=== PATIENT | female | born 1965 | race African-American/Black ===

== ENCOUNTER 2020-10-25 06:10 | Inpatient (IN) | payer OTHER ==
[2020-10-24 17:46] VITALS: BMI 35.6
[2020-10-25] MEDS ORDERED: MIDAZOLAM HCL 2 MG/2 ML SINGLE DOSE VIAL ONE ×3 (08:39→10:48)
[2020-10-25] MEDS ORDERED: DEXAMETHASONE SOD PHOSPHATE/PF 10 MG/ML SDV ONE (08:46)
[2020-10-25] MEDS ORDERED: HYDROmorphone HCl 2 MG/ML VIAL ONE (10:48)
[2020-10-25] MEDS ORDERED: ROCURONIUM BROMIDE 50 MG/5 ML SYRINGE ONE ×2 (10:48→13:39)
[2020-10-25] MEDS ORDERED: PROPOFOL 20 ML ONE (10:48)
[2020-10-25] MEDS ORDERED: ceFAZolin SODIUM 1 GM VIAL ONE ×2 (10:50→21:35)
[2020-10-25] MEDS ORDERED: KETOROLAC TROMETHAMINE 30 MG/1 ML VIAL ONE (10:50)
[2020-10-25] MEDS ORDERED: LIDOCAINE HCL/PF 2% SDV 5ML VIAL ONE (10:50)
[2020-10-25] MEDS ORDERED: DEXAMETHASONE SOD PHOSPHATE 4 MG/1 ML VIAL ONE (10:50)
[2020-10-25] MEDS ORDERED: CEFAZOLIN 2 GM in DEXTROSE 5%-WATER - 100 ML IVPB ONE (11:00)
[2020-10-25] MEDS ORDERED: ceFAZolin SODIUM 1 GM VIAL IVPB ONE (12:08)
[2020-10-25] MEDS ORDERED: NEOSTIGMINE METHYLSULFATE 0.5 MG/ML - 10 ML MDV ONE (13:49)
[2020-10-25] MEDS ORDERED: LACTATED RINGERS SOLUTION 1,000 ML IV SCH (14:00)
[2020-10-25] MEDS ORDERED: ONDANSETRON 4 MG/2 ML VIAL IVPUSH PRN ×4 (14:00→16:16)
[2020-10-25] MEDS ORDERED: oxyCODONE HCL 5 MG TABLET PO PRN ×3 (14:02→15:07)
[2020-10-25] MEDS ORDERED: ACETAMINOPHEN 1000 MG/100 ML VIAL (NON FORMULARY) IVPB ONE (14:02)
[2020-10-25] MEDS ORDERED: BENZOIN/ALOE VERA/STORAX/TOLU 58 ML BOTTLE ONE (14:29)
[2020-10-25] MEDS ORDERED: ACETAMINOPHEN INJECTION 100 ML IVPB ONE (14:50)
[2020-10-25] MEDS ORDERED: BISACODYL 5 MG TABLET.DR (FP) PO PRN (15:07)
[2020-10-25] MEDS ORDERED: INSULIN SLIDING SCALE (NOVOLOG) 1 VIAL SQ ONE (17:30)
[2020-10-25] MEDS ORDERED: ACETAMINOPHEN 325 MG TABLET (FP) PO SCH (18:00)
[2020-10-25] MEDS: SODIUM CHLORIDE 1,000 ML IV SCH (18:12)
[2020-10-25] MEDS ORDERED: amLODIPine BESYLATE 10 MG TABLET (FP) PO ONE (18:13)
[2020-10-25] MEDS: INSULIN SLIDING SCALE (NOVOLOG) 1 VIAL SQ SCH ×2 (18:14→21:21)
[2020-10-25] MEDS ORDERED: MORPHINE SULFATE 2 MG/ML VIAL SQ PRN (18:38)
[2020-10-25] MEDS ORDERED: CEFAZOLIN 1 GM in DEXTROSE 5%-WATER - 50 ML IVPB SCH ×2 (20:00→21:18)
[2020-10-25] MEDS ORDERED: IBUPROFEN 800 MG/8 ML IJ IVPB SCH (20:00)
[2020-10-25] MEDS ORDERED: KETOROLAC TROMETHAMINE 30 MG/1 ML VIAL IVPUSH PRN (20:00)
[2020-10-25] MEDS: ACETAMINOPHEN 1000 MG/100 ML VIAL (NON FORMULARY) IVPB SCH (21:21)
[2020-10-25] MEDS ORDERED: DEXTROSE 5%-WATER - 50 ML IVPB ONE (21:35)
[2020-10-25] MEDS: CEFAZOLIN 1 GM in DEXTROSE 5%-WATER - 50 ML IVPB SCH (21:37)
[2020-10-25] MEDS ORDERED: oxyCODONE HCL 10 MG SUSTAINED ACTING TABLET PO SCH (22:00)
[2020-10-26] MEDS: oxyCODONE HCL 5 MG TABLET PO PRN ×3 (01:25→21:13)
[2020-10-26] MEDS: ACETAMINOPHEN 1000 MG/100 ML VIAL (NON FORMULARY) IVPB SCH ×2 (03:05→10:53)
[2020-10-26] MEDS ORDERED: DEXTROSE 5%-WATER - 50 ML IVPB ONE ×2 (04:10→12:39)
[2020-10-26] MEDS ORDERED: ceFAZolin SODIUM 1 GM VIAL ONE ×2 (04:10→12:39)
[2020-10-26] MEDS: CEFAZOLIN 1 GM in DEXTROSE 5%-WATER - 50 ML IVPB SCH ×2 (04:11→12:40)
[2020-10-26 04:26] LABS: BASO % 0.1 % (0-2.0); HEMATOCRIT 30.5 % (32.4-45.2); HEMOGLOBIN 9.8 GM/dL (10.7-15.3); MCH 26.5 pg (25.7-33.7); MCHC 32.2 g/dl (32.0-36.0); MEAN CELL VOLUME 82.3 fl (80-96); MEAN PLT VOLUME 10.2 fl (7.5-11.1); NEUT % 86.9 % (42.8-82.8); PLATELET COUNT 173 K/MM3 (134-434); RBC 3.71 M/mm3 (3.60-5.2); RDW 16.5 % (11.6-15.6); WHITE BLOOD COUNT 13.4 K/mm3 (4.0-10.0)
[2020-10-26 04:40] LABS: POTASSIUM 3.9 mmol/L (3.5-5.1)
[2020-10-26 04:43] LABS: ALBUMIN 2.3 g/dl (3.4-5.0); BLOOD UREA NITROGEN 28.8 mg/dL (7-18); CALCIUM 7.8 mg/dL (8.5-10.1); MAGNESIUM 1.5 mg/dL (1.8-2.4)
[2020-10-26 04:46] LABS: CHOLESTEROL 147 mg/dL (50-200); CREATININE 1.9 mg/dL (0.55-1.3)
[2020-10-26 04:47] LABS: LDL CHOLESTEROL (ONLY SJRH) 54 mg/dL (5-100); PHOSPHOROUS 3.8 mg/dL (2.5-4.9)
[2020-10-26 04:48] LABS: HDL CHOLESTEROL 86 mg/dL (40-60); TRIGLYCERIDES 51 mg/dL (0-150)
[2020-10-26 04:50] LABS: BILIRUBIN,TOTAL 0.5 mg/dL (0.2-1); TOT PROT 5.8 g/dl (6.4-8.2)
[2020-10-26] MEDS: INSULIN SLIDING SCALE (NOVOLOG) 1 VIAL SQ SCH ×4 (06:17→22:09)
[2020-10-26] MEDS ORDERED: MAGNESIUM SULF 50% (8.12 MEQ/2 ML-1 GM VIAL) IVPB ONE (07:15)
[2020-10-26] MEDS ORDERED: INSULIN (LEVEMIR) 100 UNITS/ML UNITS SQ SCH ×2 (07:15→22:00)
[2020-10-26] MEDS ORDERED: HYDROCHLOROTHIAZIDE 25 MG TABLET (FP) PO SCH (10:00)
[2020-10-26] MEDS ORDERED: PATIENT'S OWN MEDICATION (NON-FORMULARY) (Losartan/Hydrochlorothiazide [Losartan-Hctz 100- PO SCH (10:00)
[2020-10-26] MEDS ORDERED: LOSARTAN POTASSIUM 50 MG TABLET PO SCH (10:00)
[2020-10-26] MEDS ORDERED: PATIENT'S OWN MEDICATION (NON-FORMULARY) (Metoprolol Tartrate [Lopressor] 100 MG Tablet) PO SCH (10:00)
[2020-10-26] MEDS ORDERED: PT OWN MED DRAWER 7, Y5N ONE (10:48)
[2020-10-26] MEDS: SODIUM CHLORIDE 1,000 ML IV SCH ×2 (10:50→13:36)
[2020-10-26] MEDS: ENOXAPARIN NA (PORCINE) 40 MG/0.4 ML DISP.SYRIN SQ SCH (10:52)
[2020-10-26] MEDS: DOCUSATE SODIUM 100 MG CAPSULE (FP) PO PRN ×2 (10:52→21:16)
[2020-10-26] MEDS: SIMETHICONE 80 MG TAB.CHEW (FP) PO PRN ×2 (10:52→21:16)
[2020-10-26 11:10] LABS: BASO % 0.2 % (0-2.0); HEMATOCRIT 29.8 % (32.4-45.2); HEMOGLOBIN 9.4 GM/dL (10.7-15.3); LYMPH % 8.7 % (8-40); MCH 26.3 pg (25.7-33.7); MCHC 31.5 g/dl (32.0-36.0); MEAN CELL VOLUME 83.5 fl (80-96); MEAN PLT VOLUME 11.3 fl (7.5-11.1); MONO % 6.5 % (3.8-10.2); NEUT % 84.6 % (42.8-82.8); PLATELET COUNT 170 K/MM3 (134-434); RBC 3.56 M/mm3 (3.60-5.2); RDW 16.5 % (11.6-15.6); WHITE BLOOD COUNT 12.7 K/mm3 (4.0-10.0)
[2020-10-26 11:26] LABS: POTASSIUM 3.9 mmol/L (3.5-5.1)
[2020-10-26 11:28] LABS: BLOOD UREA NITROGEN 27.5 mg/dL (7-18)
[2020-10-26 11:31] LABS: CREATININE 1.9 mg/dL (0.55-1.3)
[2020-10-26] MEDS ORDERED: ACETAMINOPHEN 325 MG TABLET (FP) PO PRN (15:00)
[2020-10-26] MEDS ORDERED: FERRIC CARBOXYMALTOSE 750 MG in SODIUM CHLORIDE 250 ML IVPB ONE (17:00)
[2020-10-26] MEDS ORDERED: ATORVASTATIN CA 80 MG TABLET (FP) PO SCH (22:00)
[2020-10-26] MEDS: INSULIN (LEVEMIR) 100 UNITS/ML UNITS SQ SCH (22:09)
[2020-10-26] MEDS ORDERED: IBUPROFEN 600 MG TABLET (FP) PO PRN (23:59)
[2020-10-27] MEDS: INSULIN SLIDING SCALE (NOVOLOG) 1 VIAL SQ SCH ×3 (06:34→17:26)
[2020-10-27] MEDS: INSULIN (LEVEMIR) 100 UNITS/ML UNITS SQ SCH (06:35)
[2020-10-27 06:50] LABS: BASO % 0.3 % (0-2.0); EOS % 0.6 % (0-4.5); HEMATOCRIT 29.8 % (32.4-45.2); HEMOGLOBIN 9.3 GM/dL (10.7-15.3); LYMPH % 12.1 % (8-40); MCH 25.6 pg (25.7-33.7); MCHC 31.1 g/dl (32.0-36.0); MEAN CELL VOLUME 82.5 fl (80-96); MEAN PLT VOLUME 11.1 fl (7.5-11.1); MONO % 6.6 % (3.8-10.2); NEUT % 80.4 % (42.8-82.8); PLATELET COUNT 154 K/MM3 (134-434); RBC 3.62 M/mm3 (3.60-5.2); RDW 16.9 % (11.6-15.6)
[2020-10-27 07:09] LABS: POTASSIUM 3.7 mmol/L (3.5-5.1)
[2020-10-27 07:16] LABS: CALCIUM 8.3 mg/dL (8.5-10.1)
[2020-10-27 07:17] LABS: BLOOD UREA NITROGEN 22.8 mg/dL (7-18)
[2020-10-27 07:20] LABS: CREATININE 1.6 mg/dL (0.55-1.3)
[2020-10-27] MEDS ORDERED: POLYETHYLENE GLYCOL 3350 119 GM BTL PO PRN (09:13)
[2020-10-27] MEDS: DOCUSATE SODIUM 100 MG CAPSULE (FP) PO PRN (09:20)
[2020-10-27] MEDS: SIMETHICONE 80 MG TAB.CHEW (FP) PO PRN (09:20)
[2020-10-27] MEDS: ENOXAPARIN NA (PORCINE) 40 MG/0.4 ML DISP.SYRIN SQ SCH (09:20)
[2020-10-27] MEDS ORDERED: PT OWN MED DRAWER 7, Y5N ONE ×2 (09:23→16:33)
[2020-10-27] MEDS: SODIUM CHLORIDE 1,000 ML IV SCH (09:30)
[2020-10-27] MEDS ORDERED: IRON POLYSACCHARIDES 150 MG CAPSULE PO SCH (10:00)
[2020-10-27] MEDS ORDERED: BISACODYL 10 MG SUPP.RECT PR ONE (11:45)
[2020-10-27] MEDS ORDERED: INSULIN (NOVOLOG) ASPART 100 UNITS/ML 10ML VIAL ONE (12:22)
[2020-10-27] MEDS ORDERED: ACETAMINOPHEN 1000 MG/100 ML VIAL (NON FORMULARY) IVPB ONE (12:42)
[2020-10-27] MEDS ORDERED: LOSARTAN 50MG/HCTZ 12.5MG 1 TAB PO ONE (16:00)
[2020-10-27 16:45] VITALS: BP 159/81; PULSE 78; TEMP 97.7
== END 2020-10-27 18:25 | disposition home or self-care (01) | DRG 742 ==
LOC: J2C 06:10 → J8W 17:52
PROVIDERS: ADMIT Specialist; ATTEND Specialist
PROC: 0UT90ZZ Resection of Uterus, Open Approach (ICD-10-PCS; principal; 2020-10-26)
PROC: 0UT70ZZ Resection of Bilateral Fallopian Tubes, Open Approach (ICD-10-PCS; 2020-10-26)
PROC: 0UT20ZZ Resection of Bilateral Ovaries, Open Approach (ICD-10-PCS; 2020-10-26)
PROC: 0DNW0ZZ Release Peritoneum, Open Approach (ICD-10-PCS; 2020-10-26)
DX: D25.9 Leiomyoma of uterus, unspecified (principal); N17.9 Acute kidney failure, unspecified; N92.0 Excessive and frequent menstruation with regular cycle; N73.6 Female pelvic peritoneal adhesions (postinfective); N72 Inflammatory disease of cervix uteri; N83.11 Corpus luteum cyst of right ovary; E78.5 Hyperlipidemia, unspecified; I12.9 Hypertensive chronic kidney disease with stage 1 through stage 4 chronic kidney disease, or unspecified chronic kidney disease; N18.30 Chronic kidney disease, stage 3 unspecified; E11.9 Type 2 diabetes mellitus without complications; E66.9 Obesity, unspecified; Z68.35 Body mass index [BMI] 35.0-35.9, adult; D64.9 Anemia, unspecified
CPT/HCPCS: 36415; 71045-TC-FY; 80048; 80053; 80061; 82550; 82553; 82728; 82947; 82962; 83036; 83540; 83550; 83721; 83735; 84100; 84443; 84484; 84703; 85025; 86850; 86900; 86901; 88305-TC; 88307-TC; 93005; 93010; 94010; 94760; 97116-GP; 97161-GP; J0131; J1439

== ENCOUNTER 2020-11-06 12:42 | Inpatient (IN) | payer OTHER ==
[2020-11-06] MEDS ORDERED: ONDANSETRON 4 MG/2 ML VIAL IVPUSH ONE (14:05)
[2020-11-06] MEDS ORDERED: SODIUM CHLORIDE 1,000 ML IV SCH ×3 (14:15→19:30)
[2020-11-06] MEDS ORDERED: ONDANSETRON 4 MG/2 ML VIAL ONE (14:16)
[2020-11-06 14:36] LABS: BASO % 0.7 % (0-2.0); EOS % 0.9 % (0-4.5); HEMATOCRIT 32.1 % (32.4-45.2); HEMOGLOBIN 10.4 GM/dL (10.7-15.3); LYMPH % 10.8 % (8-40); MCH 27.2 pg (25.7-33.7); MCHC 32.6 g/dl (32.0-36.0); MEAN CELL VOLUME 83.4 fl (80-96); MEAN PLT VOLUME 9.5 fl (7.5-11.1); MONO % 5.6 % (3.8-10.2); PLATELET COUNT 462 K/MM3 (134-434); RBC 3.85 M/mm3 (3.60-5.2); RDW 17.4 % (11.6-15.6)
[2020-11-06 15:12] LABS: INR 1.04 (0.83-1.09); PROTHROMBIN TIME (PATIENT) 12.6 SEC (9.7-13.0)
[2020-11-06 15:15] LABS: ACTIVATED PTT 33.8 SECONDS (25.2-36.5); POTASSIUM 3.3 mmol/L (3.5-5.1)
[2020-11-06 15:18] LABS: ALBUMIN 2.1 g/dl (3.4-5.0)
[2020-11-06 15:22] LABS: TOT PROT 7.5 g/dl (6.4-8.2)
[2020-11-06] MEDS ORDERED: morphine CARPU-JECT 4 MG/1 ML DISP.SYRIN IVPUSH ONE (15:24)
[2020-11-06] MEDS ORDERED: morphine SULFATE 4 MG/ML VIAL ONE (15:48)
[2020-11-06] MEDS ORDERED: PIPERACILLIN/TAZOB 4.5 GM 4.5 GM in DEXTROSE 5%-WATER 100 ML IVPB ONE (18:44)
[2020-11-06] MEDS ORDERED: PIPERACILLIN/TAZOB 4.5 GM 4.5 GM/100 ML BAG IVPB ONE (19:12)
[2020-11-06] MEDS ORDERED: ACETAMINOPHEN 1000 MG/100 ML VIAL (NON FORMULARY) IVPB STA (19:44)
[2020-11-06] MEDS ORDERED: MORPHINE SULFATE 2 MG/ML VIAL IVPUSH PRN (19:44)
[2020-11-06] MEDS ORDERED: ACETAMINOPHEN INJECTION 100 ML IVPB ONE (19:55)
[2020-11-06] MEDS ORDERED: ONDANSETRON 4 MG/2 ML VIAL IVPUSH PRN (21:49)
[2020-11-06] MEDS ORDERED: POTASSIUM CHLORIDE ORAL LIQUID 20 MEQ/15 ML PO ONE (21:52)
[2020-11-06] MEDS ORDERED: ATORVASTATIN CA 80 MG TABLET (FP) ONE (22:11)
[2020-11-06] MEDS ORDERED: POTASSIUM CHLORIDE ORAL LIQUID 20 MEQ/15 ML ONE (22:11)
[2020-11-06] MEDS: ATORVASTATIN CA 80 MG TABLET (FP) PO SCH (22:16)
[2020-11-07] MEDS ORDERED: PIPERACILLIN/TAZOB 3.375 GM 3.375 GM/50 ML BAG IVPB ONE (02:24)
[2020-11-07] MEDS: PIPERACILLIN/TAZOB 3.375 GM 3.375 GM in DEXTROSE 5%-WATER - 50 ML IVPB SCH ×4 (02:30→17:09)
[2020-11-07 05:55] LABS: HEMATOCRIT 27.4 % (32.4-45.2); HEMOGLOBIN 8.9 GM/dL (10.7-15.3); MCH 27.1 pg (25.7-33.7); MCHC 32.5 g/dl (32.0-36.0); MEAN CELL VOLUME 83.3 fl (80-96); MEAN PLT VOLUME 9.1 fl (7.5-11.1); PLATELET COUNT 398 K/MM3 (134-434); RBC 3.29 M/mm3 (3.60-5.2); RDW 17.5 % (11.6-15.6); WHITE BLOOD COUNT 8.7 K/mm3 (4.0-10.0)
[2020-11-07 06:12] LABS: POTASSIUM 3.4 mmol/L (3.5-5.1)
[2020-11-07 06:13] LABS: INR 1.14 (0.83-1.09); PROTHROMBIN TIME (PATIENT) 13.7 SEC (9.7-13.0)
[2020-11-07 06:18] LABS: BLOOD UREA NITROGEN 19.1 mg/dL (7-18); MAGNESIUM 1.6 mg/dL (1.8-2.4)
[2020-11-07 06:20] LABS: CALCIUM 8.4 mg/dL (8.5-10.1); CREATININE 1.9 mg/dL (0.55-1.3)
[2020-11-07 06:22] LABS: PHOSPHOROUS 3.5 mg/dL (2.5-4.9)
[2020-11-07 06:44] VITALS: BMI 33.7
[2020-11-07] MEDS ORDERED: DEXTROSE 5%-WATER - 50 ML IVPB ONE ×2 (09:10→16:55)
[2020-11-07] MEDS ORDERED: PIPERACILLIN/TAZOBACTAM 3.375 GM VIAL IVPB ONE ×2 (09:10→16:54)
[2020-11-07] MEDS: IRON POLYSACCHARIDES 150 MG CAPSULE PO SCH (09:22)
[2020-11-07] MEDS: INSULIN SLIDING SCALE (NOVOLOG) 1 VIAL SQ SCH ×4 (09:22→21:17)
[2020-11-07] MEDS ORDERED: MAGNESIUM 2GM/50ML STERILE WATER IVPB IVPB ONE (13:30)
[2020-11-07] MEDS ORDERED: POTASSIUM CHLORIDE TABS 20 MEQ TABLET.ER (FP) PO ONE (13:30)
[2020-11-07] MEDS: LACTATED RINGERS SOLUTION 1,000 ML/1,000 ML INFUS.BAG IV SCH (13:42)
[2020-11-07 14:54] LABS: EPI CELLS 16 /uL (0-25.1); HYALINE CASTS 7 /uL (0-3.1); PH,URINE 6.5 (5.0-8.0); URINE APPEARANCE TURBID; URINE BACTERIA 92 /uL (0-1359); URINE BILIRUBIN NEGATIVE (NEGATIVE); URINE COLOR ORANGE; URINE GLUCOSE (UA) 1+ (NEGATIVE); URINE KETONE NEGATIVE (NEGATIVE); URINE LEUK ESTERASE 1+ (NEGATIVE); URINE NITRITE NEGATIVE (NEGATIVE); URINE PROTEIN 3+ (NEGATIVE); URINE RBC 292 /uL (0-23.9); URINE UROBILINOGEN 0.2 mg/dL (0.2-1.0); URINE WBC 2639 /uL (0-25.8)
[2020-11-07] MEDS: ATORVASTATIN CA 80 MG TABLET (FP) PO SCH (21:17)
[2020-11-08] MEDS ORDERED: PIPERACILLIN/TAZOBACTAM 3.375 GM VIAL IVPB ONE ×2 (01:26→08:56)
[2020-11-08] MEDS ORDERED: DEXTROSE 5%-WATER - 50 ML IVPB ONE ×2 (01:26→08:57)
[2020-11-08] MEDS: LACTATED RINGERS SOLUTION 1,000 ML/1,000 ML INFUS.BAG IV SCH (01:34)
[2020-11-08] MEDS: PIPERACILLIN/TAZOB 3.375 GM 3.375 GM in DEXTROSE 5%-WATER - 50 ML IVPB SCH ×2 (01:35→09:15)
[2020-11-08] MEDS: INSULIN SLIDING SCALE (NOVOLOG) 1 VIAL SQ SCH ×2 (06:16→11:35)
[2020-11-08 08:32] LABS: BASO % 0.6 % (0-2.0); EOS % 3.3 % (0-4.5); HEMATOCRIT 29.5 % (32.4-45.2); HEMOGLOBIN 9.3 GM/dL (10.7-15.3); LYMPH % 18.8 % (8-40); MCH 26.5 pg (25.7-33.7); MCHC 31.4 g/dl (32.0-36.0); MEAN CELL VOLUME 84.4 fl (80-96); MEAN PLT VOLUME 9.4 fl (7.5-11.1); MONO % 9.4 % (3.8-10.2); NEUT % 67.9 % (42.8-82.8); PLATELET COUNT 427 K/MM3 (134-434); RDW 17.3 % (11.6-15.6); WHITE BLOOD COUNT 6.9 K/mm3 (4.0-10.0)
[2020-11-08 08:47] LABS: POTASSIUM 3.6 mmol/L (3.5-5.1)
[2020-11-08 08:50] LABS: BLOOD UREA NITROGEN 15.7 mg/dL (7-18); CALCIUM 8.6 mg/dL (8.5-10.1)
[2020-11-08 08:53] LABS: CREATININE 1.8 mg/dL (0.55-1.3)
[2020-11-08 08:55] LABS: BILIRUBIN,TOTAL 0.9 mg/dL (0.2-1)
[2020-11-08 08:59] LABS: TOT PROT 6.3 g/dl (6.4-8.2)
[2020-11-08] MEDS ORDERED: amLODIPine BESYLATE 5 MG TABLET (FP) PO SCH (10:00)
[2020-11-08] MEDS: IRON POLYSACCHARIDES 150 MG CAPSULE PO SCH (11:29)
[2020-11-08] MEDS ORDERED: LACTATED RINGERS SOLUTION 1,000 ML/1,000 ML INFUS.BAG IV SCH (13:21)
[2020-11-08 13:37] VITALS: BP 154/74; PULSE 78; TEMP 98.8
[2020-11-08] MEDS ORDERED: amLODIPine BESYLATE 5 MG TABLET (FP) PO ONE (14:45)
== END 2020-11-08 15:35 | disposition home or self-care (01) | DRG 863 ==
LOC: JER 12:42 → JERBED 19:29 → J7W 11-07 06:03
PROVIDERS: ADMIT Hospitalist; ATTEND Family Medicine
DX: K68.11 Postprocedural retroperitoneal abscess (principal); N39.0 Urinary tract infection, site not specified; N17.9 Acute kidney failure, unspecified; N73.8 Other specified female pelvic inflammatory diseases; E87.6 Hypokalemia; I12.9 Hypertensive chronic kidney disease with stage 1 through stage 4 chronic kidney disease, or unspecified chronic kidney disease; N18.9 Chronic kidney disease, unspecified; D72.829 Elevated white blood cell count, unspecified; E66.9 Obesity, unspecified; Z68.33 Body mass index [BMI] 33.0-33.9, adult; E11.65 Type 2 diabetes mellitus with hyperglycemia; E78.5 Hyperlipidemia, unspecified
CPT/HCPCS: 36415; 71045-TC-FY; 74019-TC-FY; 74176-TC; 80048; 80053; 81003; 82436; 82565; 82962; 83036; 83605; 83690; 83735; 84100; 84133; 84300; 85025; 85027; 85610; 85730; 86140; 86850; 86900; 86901; 87040; 87086; 93005; 93010; 99285-25; C9803; J0131; U0003

== ENCOUNTER 2021-03-05 13:43 | Emergency (ER) | payer OTHER ==
[2021-03-05 13:49] VITALS: BP 162/88; PULSE 71; TEMP 97.8; BMI 35.4
[2021-03-05] MEDS ORDERED: ACETAMINOPHEN 500 MG TABLET (FP) PO ONE (15:56)
== END 2021-03-05 17:26 | disposition home or self-care (01) ==
LOC: JERFT 13:43
DX: M71.21 Synovial cyst of popliteal space [Baker], right knee (principal)
CPT/HCPCS: 73562-TC-RT-FY; 93971-TC; 99284-25

== ENCOUNTER 2021-08-11 06:13 | Inpatient (IN) | payer SELFPAY ==
[2021-08-11] MEDS ORDERED: METOCLOPRAMIDE HCL INJECTION 10 MG/2 ML VIAL IVPUSH ONE (08:45)
[2021-08-11] MEDS ORDERED: SODIUM CHLORIDE 0.9% 500 ML INFUS.BAG IV ONE (08:46)
[2021-08-11] MEDS ORDERED: METOCLOPRAMIDE HCL INJECTION 10 MG/2 ML VIAL ONE (09:15)
[2021-08-11] MEDS ORDERED: LABETALOL HCL 5 MG/1 ML (100MG/20 ML VIAL) IVPUSH ONE (11:32)
[2021-08-11] MEDS ORDERED: LABETALOL HCL 5 MG/1 ML (100MG/20 ML VIAL) ONE (11:37)
[2021-08-11 12:14] LABS: BASO % 0.5 % (0-2.0); EOS % 0.1 % (0-4.5); HEMATOCRIT 35.8 % (32.4-45.2); HEMOGLOBIN 12.1 GM/dL (10.7-15.3); LYMPH % 9.4 % (8-40); MCH 28.7 pg (25.7-33.7); MCHC 33.7 g/dl (32.0-36.0); MEAN CELL VOLUME 85.2 fl (80-96); MONO % 1.9 % (3.8-10.2); NEUT % 88.1 % (42.8-82.8); PLATELET COUNT 250 10^3/uL (134-434); RBC 4.21 M/mm3 (3.60-5.2); RDW 14.9 % (11.6-15.6); WHITE BLOOD COUNT 8.1 K/mm3 (4.0-10.0)
[2021-08-11 12:37] LABS: ALBUMIN 1.8 g/dl (3.4-5.0)
[2021-08-11 12:40] LABS: CREATININE 2.8 mg/dL (0.55-1.3)
[2021-08-11 12:42] LABS: BILIRUBIN,TOTAL 0.8 mg/dL (0.2-1); BLOOD UREA NITROGEN 24.2 mg/dL (7-18); TOT PROT 6.2 g/dl (6.4-8.2)
[2021-08-11] MEDS ORDERED: amLODIPine BESYLATE 5 MG TABLET (FP) PO ONE ×2 (12:56→21:27)
[2021-08-11] MEDS ORDERED: amLODIPine BESYLATE 5 MG TABLET (FP) ONE ×2 (13:09→22:20)
[2021-08-11] MEDS ORDERED: ACETAMINOPHEN 1000 MG/100 ML VIAL (NON FORMULARY) IVPB PRN (17:37)
[2021-08-11] MEDS ORDERED: LACTATED RINGERS SOLUTION 1000 ML INFUS.BAG IV ONE (17:38)
[2021-08-11] MEDS ORDERED: PANTOPRAZOLE SODIUM 40 MG/100 ML BAG IVPB ONE (22:20)
[2021-08-11] MEDS: INSULIN SLIDING SCALE (NOVOLOG) 1 VIAL SQ SCH (22:34)
[2021-08-11] MEDS: PANTOPRAZOLE SODIUM 40 MG VIAL IVPUSH SCH (22:34)
[2021-08-12] MEDS ORDERED: hydrALAZINE HCL 50 MG TABLET (FP) PO ONE ×3 (00:18→08:40)
[2021-08-12 01:34] LABS: BASO % 0.9 % (0-2.0); HEMATOCRIT 32.1 % (32.4-45.2); HEMOGLOBIN 10.9 GM/dL (10.7-15.3); LYMPH % 25.1 % (8-40); MEAN CELL VOLUME 85.3 fl (80-96); MEAN PLT VOLUME 9.2 fl (7.5-11.1); MONO % 9.3 % (3.8-10.2); NEUT % 63.7 % (42.8-82.8); PLATELET COUNT 228 10^3/uL (134-434); RBC 3.77 M/mm3 (3.60-5.2); WHITE BLOOD COUNT 8.1 K/mm3 (4.0-10.0)
[2021-08-12] MEDS ORDERED: ACETAMINOPHEN 325 MG TABLET (FP) PO PRN (01:47)
[2021-08-12 04:26] VITALS: BMI 32.1
[2021-08-12] MEDS: INSULIN SLIDING SCALE (NOVOLOG) 1 VIAL SQ SCH ×4 (06:35→22:01)
[2021-08-12 07:47] LABS: BASO % 0.9 % (0-2.0); EOS % 1.4 % (0-4.5); HEMATOCRIT 29.7 % (32.4-45.2); HEMOGLOBIN 10.3 GM/dL (10.7-15.3); MCH 29.2 pg (25.7-33.7); MCHC 34.6 g/dl (32.0-36.0); MEAN CELL VOLUME 84.3 fl (80-96); MONO % 7.3 % (3.8-10.2); NEUT % 56.4 % (42.8-82.8); PLATELET COUNT 207 10^3/uL (134-434); RBC 3.52 M/mm3 (3.60-5.2); RDW 15.1 % (11.6-15.6); WHITE BLOOD COUNT 7.6 K/mm3 (4.0-10.0)
[2021-08-12 07:53] LABS: CALCIUM 7.2 mg/dL (8.5-10.1)
[2021-08-12 07:54] LABS: BLOOD UREA NITROGEN 36.9 mg/dL (7-18)
[2021-08-12 07:57] LABS: CREATININE 3.3 mg/dL (0.55-1.3)
[2021-08-12 07:59] LABS: BILIRUBIN,TOTAL 0.2 mg/dL (0.2-1); TOT PROT 4.7 g/dl (6.4-8.2)
[2021-08-12 08:30] LABS: ALBUMIN 1.4 g/dl (3.4-5.0)
[2021-08-12] MEDS: PANTOPRAZOLE SODIUM 40 MG VIAL IVPUSH SCH ×2 (09:17→22:01)
[2021-08-12] MEDS: amLODIPine BESYLATE 10 MG TABLET (FP) PO SCH (09:17)
[2021-08-12] MEDS ORDERED: SODIUM CHLORIDE 0.45% 1,000 ML IV SCH (14:00)
[2021-08-12 17:01] LABS: EPI CELLS 20 /uL (0-25.1); HYALINE CASTS 2 /uL (0-3.1); URINE APPEARANCE CLEAR; URINE BACTERIA 141 /uL (0-1359); URINE BILIRUBIN NEGATIVE (NEGATIVE); URINE COLOR YELLOW; URINE GLUCOSE (UA) 1+ (NEGATIVE); URINE KETONE NEGATIVE (NEGATIVE); URINE LEUK ESTERASE NEGATIVE (NEGATIVE); URINE NITRITE NEGATIVE (NEGATIVE); URINE PROTEIN 4+ (NEGATIVE); URINE RBC 27 /uL (0-23.9); URINE UROBILINOGEN 0.2 mg/dL (0.2-1.0); URINE WBC 15 /uL (0-25.8)
[2021-08-13] MEDS: INSULIN SLIDING SCALE (NOVOLOG) 1 VIAL SQ SCH ×4 (06:48→22:06)
[2021-08-13 07:47] LABS: CALCIUM 7.9 mg/dL (8.5-10.1)
[2021-08-13 07:48] LABS: ALBUMIN 1.6 g/dl (3.4-5.0); BLOOD UREA NITROGEN 38.3 mg/dL (7-18)
[2021-08-13 07:51] LABS: CREATININE 3.4 mg/dL (0.55-1.3)
[2021-08-13 07:53] LABS: BILIRUBIN,TOTAL 0.4 mg/dL (0.2-1); TOT PROT 5.4 g/dl (6.4-8.2)
[2021-08-13] MEDS: amLODIPine BESYLATE 10 MG TABLET (FP) PO SCH (10:27)
[2021-08-13] MEDS: PANTOPRAZOLE SODIUM 40 MG VIAL IVPUSH SCH ×2 (10:27→22:03)
[2021-08-13] MEDS ORDERED: INSULIN (NOVOLOG) ASPART 100 UNITS/ML 10ML VIAL ONE (12:19)
[2021-08-14] MEDS: INSULIN SLIDING SCALE (NOVOLOG) 1 VIAL SQ SCH ×4 (06:45→21:16)
[2021-08-14] MEDS: INSULIN (LEVEMIR) 100 UNITS/ML UNITS SQ SCH (06:45)
[2021-08-14 07:46] LABS: BASO % 0.8 % (0-2.0); EOS % 3.2 % (0-4.5); HEMATOCRIT 29.9 % (32.4-45.2); HEMOGLOBIN 10.1 GM/dL (10.7-15.3); LYMPH % 36.1 % (8-40); MCH 28.6 pg (25.7-33.7); MCHC 33.9 g/dl (32.0-36.0); MEAN CELL VOLUME 84.4 fl (80-96); MEAN PLT VOLUME 10.2 fl (7.5-11.1); MONO % 5.6 % (3.8-10.2); NEUT % 54.3 % (42.8-82.8); PLATELET COUNT 204 10^3/uL (134-434); RBC 3.54 M/mm3 (3.60-5.2); RDW 14.8 % (11.6-15.6); WHITE BLOOD COUNT 6.5 K/mm3 (4.0-10.0)
[2021-08-14 08:09] LABS: CALCIUM 7.8 mg/dL (8.5-10.1)
[2021-08-14 08:10] LABS: BLOOD UREA NITROGEN 41.5 mg/dL (7-18)
[2021-08-14] MEDS ORDERED: POTASSIUM CHLORIDE TABS 20 MEQ TABLET.ER (FP) PO ONE (09:00)
[2021-08-14] MEDS: PANTOPRAZOLE SODIUM 40 MG VIAL IVPUSH SCH ×2 (09:53→21:16)
[2021-08-14] MEDS: amLODIPine BESYLATE 10 MG TABLET (FP) PO SCH (09:53)
[2021-08-14] MEDS: hydrALAZINE HCL 25 MG TABLET (FP) PO SCH ×2 (13:58→21:16)
[2021-08-14] MEDS ORDERED: INSULIN (NOVOLOG) ASPART 100 UNITS/ML 10ML VIAL ONE (21:02)
[2021-08-15] MEDS: INSULIN (LEVEMIR) 100 UNITS/ML UNITS SQ SCH (06:08)
[2021-08-15] MEDS: hydrALAZINE HCL 25 MG TABLET (FP) PO SCH (06:09)
[2021-08-15] MEDS: INSULIN SLIDING SCALE (NOVOLOG) 1 VIAL SQ SCH ×3 (06:09→17:33)
[2021-08-15] MEDS ORDERED: PANTOPRAZOLE 40 MG TABLET PO SCH (10:00)
[2021-08-15] MEDS: amLODIPine BESYLATE 10 MG TABLET (FP) PO SCH (10:15)
[2021-08-15 11:58] LABS: EOS % 2.9 % (0-4.5); HEMATOCRIT 31.4 % (32.4-45.2); HEMOGLOBIN 10.9 GM/dL (10.7-15.3); LYMPH % 28.3 % (8-40); MCHC 34.6 g/dl (32.0-36.0); MEAN CELL VOLUME 83.8 fl (80-96); MEAN PLT VOLUME 9.1 fl (7.5-11.1); MONO % 5.3 % (3.8-10.2); NEUT % 62.5 % (42.8-82.8); PLATELET COUNT 225 10^3/uL (134-434); RBC 3.75 M/mm3 (3.60-5.2); RDW 14.6 % (11.6-15.6)
[2021-08-15 12:36] LABS: BLOOD UREA NITROGEN 38.6 mg/dL (7-18); CALCIUM 7.7 mg/dL (8.5-10.1)
[2021-08-15 12:39] LABS: CREATININE 2.7 mg/dL (0.55-1.3)
[2021-08-15] MEDS ORDERED: hydrALAZINE HCL 50 MG TABLET (FP) PO SCH (14:00)
[2021-08-15] MEDS ORDERED: POTASSIUM CHLORIDE TABS 20 MEQ TABLET.ER (FP) PO ONE (14:30)
[2021-08-15 15:48] VITALS: BP 184/86; PULSE 70; TEMP 97.8
[2021-08-16 12:08] LABS: ANTIGLOMERULAR BASEMENT MEN.AB 2 units (0-20)
[2021-08-17 18:11] LABS: ATYPICAL pANCA <1:20 titer (Neg:<1:20); C-ANCA <1:20 titer (Neg:<1:20)
== END 2021-08-15 18:33 | disposition home or self-care (01) | DRG 199 ==
LOC: JER 06:13 → JERBED 13:00 → J4W 23:21
PROVIDERS: ATTEND Family Medicine
DX: I16.1 Hypertensive emergency (principal); I12.9 Hypertensive chronic kidney disease with stage 1 through stage 4 chronic kidney disease, or unspecified chronic kidney disease; E11.22 Type 2 diabetes mellitus with diabetic chronic kidney disease; N18.9 Chronic kidney disease, unspecified; E78.5 Hyperlipidemia, unspecified; K92.0 Hematemesis; N17.9 Acute kidney failure, unspecified; I24.8 Other forms of acute ischemic heart disease; D64.9 Anemia, unspecified; M17.0 Bilateral primary osteoarthritis of knee
CPT/HCPCS: 36415; 70450-TC; 71045-TC-FY; 73562-TC-LT-FY; 73562-TC-RT-FY; 76775-TC; 80048; 80053; 81003; 82272; 82436; 82550; 82553; 82570; 82962; 83036; 83516; 83520; 84133; 84155; 84156; 84165; 84300; 84484; 84585; 85025; 86038; 86225; 86256; 86706; 86850; 86900; 86901; 87340; 87517; 87522; 93005; 93010; 93306-TC; 99285-25; C9803; J0131; U0003; U0005

== ENCOUNTER 2021-08-28 06:58 | Emergency (ER) | payer SELFPAY ==
[2021-08-28 07:04] VITALS: BP 167/82; PULSE 72; TEMP 98.1; BMI 35.4
[2021-08-28] MEDS ORDERED: KETOROLAC TROMETHAMINE 60 MG/2 ML VIAL IM ONE (08:16)
[2021-08-28] MEDS ORDERED: KETOROLAC TROMETHAMINE 60 MG/2 ML VIAL ONE (08:20)
== END 2021-08-28 09:45 | disposition home or self-care (01) ==
LOC: JER 06:58
PROC: 3E0233Z Introduction of Anti-inflammatory into Muscle, Percutaneous Approach (ICD-10-PCS; principal; 2021-08-28)
DX: M25.562 Pain in left knee (principal); G89.29 Other chronic pain
CPT/HCPCS: 73560-TC-LT-FY; 99284-25

== ENCOUNTER 2022-07-14 23:50 | Inpatient (IN) | payer OTHER ==
[2022-07-15 03:58] LABS: BASO % 0.5 % (0-2.0); EOS % 2.8 % (0-4.5); HEMATOCRIT 23.5 % (32.4-45.2); HEMOGLOBIN 8.1 GM/dL (10.7-15.3); LYMPH % 33.3 % (8-40); MCH 29.9 pg (25.7-33.7); MCHC 34.3 g/dl (32.0-36.0); MEAN CELL VOLUME 87.2 fl (80-96); MEAN PLT VOLUME 8.2 fl (7.5-11.1); NEUT % 53.4 % (42.8-82.8); PLATELET COUNT 224 10^3/uL (134-434); RDW 14.7 % (11.6-15.6); WHITE BLOOD COUNT 5.4 K/mm3 (4.0-10.0)
[2022-07-15 04:32] LABS: CALCIUM 8.4 mg/dL (8.5-10.1)
[2022-07-15 04:33] LABS: ALBUMIN 2.6 g/dl (3.4-5.0); BLOOD UREA NITROGEN 56.6 mg/dL (7-18)
[2022-07-15 04:36] LABS: CREATININE 5.7 mg/dL (0.55-1.3)
[2022-07-15 04:37] LABS: BILIRUBIN,TOTAL 0.3 mg/dL (0.2-1)
[2022-07-15 04:38] LABS: TOT PROT 6.2 g/dl (6.4-8.2)
[2022-07-15] MEDS ORDERED: LABETALOL HCL 5 MG/1 ML (100MG/20 ML VIAL) IVPUSH ONE ×4 (04:59→17:20)
[2022-07-15] MEDS ORDERED: amLODIPine BESYLATE 10 MG TABLET (FP) PO ONE (05:16)
[2022-07-15] MEDS ORDERED: SODIUM CHLORIDE 500 ML IV STA (05:48)
[2022-07-15] MEDS ORDERED: amLODIPine BESYLATE 10 MG TABLET (FP) ONE ×2 (05:53→09:03)
[2022-07-15] MEDS ORDERED: SODIUM CHLORIDE 1,000 ML IV SCH (07:30)
[2022-07-15] MEDS ORDERED: PANTOPRAZOLE 40 MG TABLET PO ONE (09:03)
[2022-07-15] MEDS: PANTOPRAZOLE 40 MG TABLET PO SCH ×2 (09:45→22:10)
[2022-07-15] MEDS ORDERED: hydrALAZINE HCL 20 MG/ML VIAL IVPUSH PRN (09:55)
[2022-07-15] MEDS ORDERED: amLODIPine BESYLATE 10 MG TABLET (FP) PO SCH (10:00)
[2022-07-15] MEDS ORDERED: METOPROLOL TARTRATE 5 MG/5 ML VIAL ONE ×3 (10:42→15:48)
[2022-07-15] MEDS: METOPROLOL TARTRATE 5 MG/5 ML VIAL IVPUSH SCH ×2 (10:47→13:33)
[2022-07-15] MEDS: ATORVASTATIN CA 80 MG TABLET (FP) PO SCH (10:54)
[2022-07-15] MEDS ORDERED: hydrALAZINE HCL 20 MG/ML VIAL ONE (11:19)
[2022-07-15] MEDS: INSULIN SLIDING SCALE (NOVOLOG) 1 VIAL SQ SCH ×3 (11:46→22:10)
[2022-07-15] MEDS ORDERED: hydrALAZINE HCL 50 MG TABLET (FP) PO SCH (14:00)
[2022-07-15] MEDS ORDERED: SODIUM CHLORIDE 0.45% 1,000 ML IV SCH (14:45)
[2022-07-15] MEDS ORDERED: METOPROLOL TARTRATE 5 MG/5 ML VIAL IVPUSH ONE (15:21)
[2022-07-15 16:41] LABS: EPI CELLS 3 /uL (0-25.1); HYALINE CASTS 1 /uL (0-3.1); PH,URINE 6.5 (5.0-8.0); URINE APPEARANCE CLOUDY; URINE BACTERIA >9,000 /uL (0-1359); URINE BILIRUBIN NEGATIVE (NEGATIVE); URINE COLOR YELLOW; URINE GLUCOSE (UA) NEGATIVE (NEGATIVE); URINE KETONE NEGATIVE (NEGATIVE); URINE LEUK ESTERASE 2+ (NEGATIVE); URINE NITRITE NEGATIVE (NEGATIVE); URINE PROTEIN 3+ (NEGATIVE); URINE RBC 12 /uL (0-23.9); URINE UROBILINOGEN 0.2 mg/dL (0.2-1.0); URINE WBC 471 /uL (0-25.8)
[2022-07-15] MEDS ORDERED: CEFTRIAXONE 1 GM in DEXTROSE 5%-WATER - 50 ML IVPB SCH (16:45)
[2022-07-15] MEDS ORDERED: CEFTRIAXONE 1 GM/50 ML BAG ONE (17:13)
[2022-07-15] MEDS ORDERED: LABETALOL HCL 5 MG/1 ML (100MG/20 ML VIAL) ONE (17:13)
[2022-07-15] MEDS: NICARDIPINE 25 MG in DEXTROSE 5%-WATER - 240 ML IVPB SCH (19:29)
[2022-07-15] MEDS ORDERED: PIPERACILLIN/TAZOB 2.25 GM 2.25 GM in DEXTROSE 5%-WATER - 50 ML IVPB SCH (19:45)
[2022-07-15] MEDS ORDERED: PIPERACILLIN/TAZOB 2.25 GM 2.25 GM/50 ML BAG IVPB ONE (20:08)
[2022-07-15] MEDS: MUPIROCIN 2% TOPICAL OINTMENT FOR DECOLONIZATION NS SCH (22:11)
[2022-07-15] MEDS: DOXYCYCLINE INJECTION 100 MG in DEXTROSE 5%-WATER 100 ML IVPB SCH (22:11)
[2022-07-15] MEDS: CHLORHEXIDINE GLUCONATE 4% CLEANSER FOR DECOLONIZATION TP SCH (22:11)
[2022-07-15] MEDS: levETIRAcetam 500 MG/5 ML INJECTION VIAL IVPB SCH (22:11)
[2022-07-16] MEDS: NICARDIPINE 25 MG in DEXTROSE 5%-WATER - 240 ML IVPB SCH ×2 (00:30→23:00)
[2022-07-16] MEDS ORDERED: PIPERACILLIN/TAZOB 2.25 GM 2.25 GM in DEXTROSE 5%-WATER - 50 ML IVPB SCH (02:00)
[2022-07-16] MEDS: INSULIN SLIDING SCALE (NOVOLOG) 1 VIAL SQ SCH ×4 (06:01→22:08)
[2022-07-16 08:08] LABS: BASO % 0.8 % (0-2.0); EOS % 3.4 % (0-4.5); HEMATOCRIT 26.3 % (32.4-45.2); HEMOGLOBIN 8.6 GM/dL (10.7-15.3); LYMPH % 23.4 % (8-40); MCH 28.8 pg (25.7-33.7); MCHC 32.9 g/dl (32.0-36.0); MEAN CELL VOLUME 87.5 fl (80-96); MEAN PLT VOLUME 8.6 fl (7.5-11.1); MONO % 6.3 % (3.8-10.2); NEUT % 66.1 % (42.8-82.8); PLATELET COUNT 275 10^3/uL (134-434); RDW 14.9 % (11.6-15.6); WHITE BLOOD COUNT 6.1 K/mm3 (4.0-10.0)
[2022-07-16 08:29] LABS: INR 0.91 (0.83-1.09); PROTHROMBIN TIME (PATIENT) 10.5 SEC (9.7-13.0)
[2022-07-16 08:32] LABS: ACTIVATED PTT 33.9 SECONDS (25.2-36.5); ALBUMIN 2.9 g/dl (3.4-5.0); BLOOD UREA NITROGEN 50.6 mg/dL (7-18); CALCIUM 8.6 mg/dL (8.5-10.1)
[2022-07-16 08:35] LABS: CREATININE 5.5 mg/dL (0.55-1.3); PHOSPHOROUS 4.7 mg/dL (2.5-4.9)
[2022-07-16 08:37] LABS: BILIRUBIN,TOTAL 0.4 mg/dL (0.2-1); TOT PROT 6.7 g/dl (6.4-8.2)
[2022-07-16] MEDS: ATORVASTATIN CA 80 MG TABLET (FP) PO SCH (09:46)
[2022-07-16] MEDS: DOXYCYCLINE INJECTION 100 MG in DEXTROSE 5%-WATER 100 ML IVPB SCH (09:46)
[2022-07-16] MEDS: PANTOPRAZOLE 40 MG TABLET PO SCH (09:46)
[2022-07-16] MEDS: levETIRAcetam 500 MG/5 ML INJECTION VIAL IVPB SCH ×2 (09:46→22:02)
[2022-07-16] MEDS: MUPIROCIN 2% TOPICAL OINTMENT FOR DECOLONIZATION NS SCH ×2 (09:46→22:09)
[2022-07-16] MEDS ORDERED: LOSARTAN POTASSIUM 50 MG TABLET PO SCH (10:15)
[2022-07-16] MEDS: CARVEDILOL 25 MG TABLET (FP) PO SCH ×2 (10:41→22:45)
[2022-07-16] MEDS: SERTRALINE HCL 25 MG TABLET (FP) PO SCH (10:41)
[2022-07-16] MEDS: ISOSORBIDE MONONITRATE 60 MG TAB.SR.24H (FP) PO SCH (11:22)
[2022-07-16] MEDS ORDERED: hydrALAZINE HCL 50 MG TABLET (FP) PO SCH ×2 (11:33→14:00)
[2022-07-16] MEDS ORDERED: hydrALAZINE HCL 10 MG TABLET PO ONE (12:04)
[2022-07-16] MEDS: METOCLOPRAMIDE HCL 10 MG TABLET (FP) PO SCH ×2 (14:26→22:45)
[2022-07-16] MEDS: CEFTRIAXONE 1 GM in DEXTROSE 5%-WATER - 50 ML IVPB SCH (15:20)
[2022-07-16] MEDS: SODIUM CHLORIDE 0.45% 1,000 ML IV SCH (17:12)
[2022-07-16] MEDS: CHLORHEXIDINE GLUCONATE 4% CLEANSER FOR DECOLONIZATION TP SCH (22:03)
[2022-07-16] MEDS: hydrALAZINE HCL 50 MG TABLET (FP) PO SCH (22:45)
[2022-07-17] MEDS ORDERED: hydrALAZINE HCL 20 MG/ML VIAL IVPUSH ONE (02:25)
[2022-07-17] MEDS: INSULIN SLIDING SCALE (NOVOLOG) 1 VIAL SQ SCH ×4 (06:44→21:28)
[2022-07-17 07:40] LABS: HEMOGLOBIN 7.8 GM/dL (10.7-15.3); MCH 28.8 pg (25.7-33.7); MCHC 32.7 g/dl (32.0-36.0); MEAN CELL VOLUME 87.9 fl (80-96); MEAN PLT VOLUME 8.2 fl (7.5-11.1); PLATELET COUNT 237 10^3/uL (134-434); RBC 2.73 M/mm3 (3.60-5.2); RDW 14.6 % (11.6-15.6); WHITE BLOOD COUNT 5.7 K/mm3 (4.0-10.0)
[2022-07-17] MEDS: hydrALAZINE HCL 50 MG TABLET (FP) PO SCH ×3 (07:51→21:28)
[2022-07-17] MEDS: METOCLOPRAMIDE HCL 10 MG TABLET (FP) PO SCH ×3 (07:51→21:28)
[2022-07-17 08:33] LABS: BLOOD UREA NITROGEN 48.8 mg/dL (7-18); CALCIUM 8.3 mg/dL (8.5-10.1); MAGNESIUM 1.9 mg/dL (1.8-2.4)
[2022-07-17 08:35] LABS: PHOSPHOROUS 4.5 mg/dL (2.5-4.9)
[2022-07-17 08:36] LABS: CREATININE 5.3 mg/dL (0.55-1.3)
[2022-07-17] MEDS: MUPIROCIN 2% TOPICAL OINTMENT FOR DECOLONIZATION NS SCH ×2 (09:52→21:28)
[2022-07-17] MEDS: CEFTRIAXONE 1 GM in DEXTROSE 5%-WATER - 50 ML IVPB SCH (09:53)
[2022-07-17] MEDS: levETIRAcetam 500 MG/5 ML INJECTION VIAL IVPB SCH ×2 (09:54→21:28)
[2022-07-17] MEDS: ISOSORBIDE MONONITRATE 60 MG TAB.SR.24H (FP) PO SCH (10:09)
[2022-07-17] MEDS: SERTRALINE HCL 25 MG TABLET (FP) PO SCH (10:10)
[2022-07-17] MEDS: CARVEDILOL 25 MG TABLET (FP) PO SCH ×2 (10:10→21:28)
[2022-07-17] MEDS: ATORVASTATIN CA 80 MG TABLET (FP) PO SCH (10:11)
[2022-07-17] MEDS: PANTOPRAZOLE 40 MG TABLET PO SCH (10:11)
[2022-07-17] MEDS: amLODIPine BESYLATE 10 MG TABLET (FP) PO SCH (10:11)
[2022-07-17 17:11] VITALS: BMI 27.6
[2022-07-17] MEDS: SODIUM CHLORIDE 0.45% 1,000 ML IV SCH (17:25)
[2022-07-17] MEDS: CHLORHEXIDINE GLUCONATE 4% CLEANSER FOR DECOLONIZATION TP SCH (21:28)
[2022-07-18] MEDS ORDERED: hydrALAZINE HCL 20 MG/ML VIAL IVPUSH ONE (02:57)
[2022-07-18] MEDS: hydrALAZINE HCL 50 MG TABLET (FP) PO SCH ×3 (06:10→21:43)
[2022-07-18] MEDS: METOCLOPRAMIDE HCL 10 MG TABLET (FP) PO SCH ×3 (06:10→21:43)
[2022-07-18] MEDS: INSULIN SLIDING SCALE (NOVOLOG) 1 VIAL SQ SCH ×4 (06:10→21:43)
[2022-07-18] MEDS: ISOSORBIDE MONONITRATE 60 MG TAB.SR.24H (FP) PO SCH (10:33)
[2022-07-18] MEDS: CARVEDILOL 25 MG TABLET (FP) PO SCH ×2 (10:33→21:43)
[2022-07-18] MEDS: MUPIROCIN 2% TOPICAL OINTMENT FOR DECOLONIZATION NS SCH ×2 (10:33→21:44)
[2022-07-18] MEDS: SERTRALINE HCL 25 MG TABLET (FP) PO SCH (10:34)
[2022-07-18] MEDS: levETIRAcetam 500 MG TABLET (FP) PO SCH ×2 (10:34→21:43)
[2022-07-18] MEDS: ATORVASTATIN CA 80 MG TABLET (FP) PO SCH (10:34)
[2022-07-18] MEDS: amLODIPine BESYLATE 10 MG TABLET (FP) PO SCH (10:34)
[2022-07-18] MEDS: PANTOPRAZOLE 40 MG TABLET PO SCH (10:34)
[2022-07-18] MEDS: CEFTRIAXONE 1 GM in DEXTROSE 5%-WATER - 50 ML IVPB SCH (10:34)
[2022-07-18] MEDS: SODIUM CHLORIDE 0.45% 1,000 ML IV SCH (17:16)
[2022-07-18 17:39] LABS: EOS % 2.5 % (0-4.5); HEMATOCRIT 24.7 % (32.4-45.2); LYMPH % 29.3 % (8-40); MCH 28.5 pg (25.7-33.7); MCHC 32.4 g/dl (32.0-36.0); MEAN CELL VOLUME 87.9 fl (80-96); MEAN PLT VOLUME 8.9 fl (7.5-11.1); MONO % 5.8 % (3.8-10.2); NEUT % 61.4 % (42.8-82.8); PLATELET COUNT 265 10^3/uL (134-434); RBC 2.81 M/mm3 (3.60-5.2); WHITE BLOOD COUNT 5.6 K/mm3 (4.0-10.0)
[2022-07-18 18:04] LABS: ALBUMIN 2.5 g/dl (3.4-5.0); CALCIUM 8.5 mg/dL (8.5-10.1)
[2022-07-18 18:06] LABS: CREATININE 5.2 mg/dL (0.55-1.3)
[2022-07-18 18:09] LABS: BILIRUBIN,TOTAL 0.6 mg/dL (0.2-1); TOT PROT 6.3 g/dl (6.4-8.2)
[2022-07-18] MEDS: CHLORHEXIDINE GLUCONATE 4% CLEANSER FOR DECOLONIZATION TP SCH (21:44)
[2022-07-19] MEDS: METOCLOPRAMIDE HCL 10 MG TABLET (FP) PO SCH ×3 (06:45→21:05)
[2022-07-19] MEDS: hydrALAZINE HCL 50 MG TABLET (FP) PO SCH ×3 (06:45→21:04)
[2022-07-19] MEDS: INSULIN SLIDING SCALE (NOVOLOG) 1 VIAL SQ SCH ×4 (06:46→21:19)
[2022-07-19 06:47] LABS: BASO % 0.5 % (0-2.0); EOS % 2.9 % (0-4.5); HEMATOCRIT 22.3 % (32.4-45.2); HEMOGLOBIN 7.3 GM/dL (10.7-15.3); LYMPH % 35.7 % (8-40); MCH 28.8 pg (25.7-33.7); MCHC 32.9 g/dl (32.0-36.0); MEAN CELL VOLUME 87.6 fl (80-96); MEAN PLT VOLUME 8.2 fl (7.5-11.1); NEUT % 52.9 % (42.8-82.8); PLATELET COUNT 236 10^3/uL (134-434); RBC 2.54 M/mm3 (3.60-5.2); RDW 14.2 % (11.6-15.6); WHITE BLOOD COUNT 5.1 K/mm3 (4.0-10.0)
[2022-07-19 07:22] LABS: ALBUMIN 2.5 g/dl (3.4-5.0); CALCIUM 8.2 mg/dL (8.5-10.1)
[2022-07-19 07:23] LABS: BLOOD UREA NITROGEN 45.6 mg/dL (7-18)
[2022-07-19 07:25] LABS: CREATININE 5.2 mg/dL (0.55-1.3)
[2022-07-19 07:27] LABS: BILIRUBIN,TOTAL 0.3 mg/dL (0.2-1); TOT PROT 5.9 g/dl (6.4-8.2)
[2022-07-19] MEDS: CARVEDILOL 25 MG TABLET (FP) PO SCH ×3 (09:24→21:04)
[2022-07-19] MEDS: PANTOPRAZOLE 40 MG TABLET PO SCH ×2 (09:24→12:26)
[2022-07-19] MEDS: ATORVASTATIN CA 80 MG TABLET (FP) PO SCH ×2 (09:24→12:26)
[2022-07-19] MEDS: amLODIPine BESYLATE 10 MG TABLET (FP) PO SCH ×2 (09:24→12:26)
[2022-07-19] MEDS: SERTRALINE HCL 25 MG TABLET (FP) PO SCH ×2 (09:24→12:26)
[2022-07-19] MEDS: CEFTRIAXONE 1 GM in DEXTROSE 5%-WATER - 50 ML IVPB SCH (09:24)
[2022-07-19] MEDS: levETIRAcetam 500 MG TABLET (FP) PO SCH ×3 (09:24→21:04)
[2022-07-19] MEDS: MUPIROCIN 2% TOPICAL OINTMENT FOR DECOLONIZATION NS SCH ×2 (09:25→21:04)
[2022-07-19] MEDS: ISOSORBIDE MONONITRATE 60 MG TAB.SR.24H (FP) PO SCH (12:26)
[2022-07-19] MEDS: METOPROLOL TARTRATE 5 MG/5 ML VIAL IVPUSH PRN ×2 (13:59→17:24)
[2022-07-19] MEDS: CHLORHEXIDINE GLUCONATE 4% CLEANSER FOR DECOLONIZATION TP SCH (21:04)
[2022-07-19] MEDS: SODIUM CHLORIDE 0.45% 1,000 ML IV SCH (21:18)
[2022-07-20] MEDS: METOPROLOL TARTRATE 5 MG/5 ML VIAL IVPUSH PRN (02:58)
[2022-07-20] MEDS: hydrALAZINE HCL 50 MG TABLET (FP) PO SCH ×3 (06:14→21:17)
[2022-07-20] MEDS: METOCLOPRAMIDE HCL 10 MG TABLET (FP) PO SCH ×3 (06:14→21:17)
[2022-07-20] MEDS: SODIUM CHLORIDE 0.45% 1,000 ML IV SCH ×2 (06:15→20:35)
[2022-07-20] MEDS: INSULIN SLIDING SCALE (NOVOLOG) 1 VIAL SQ SCH ×4 (06:16→21:27)
[2022-07-20] MEDS: CEFTRIAXONE 1 GM in DEXTROSE 5%-WATER - 50 ML IVPB SCH (10:11)
[2022-07-20] MEDS: CARVEDILOL 25 MG TABLET (FP) PO SCH ×2 (10:13→21:18)
[2022-07-20] MEDS: PANTOPRAZOLE 40 MG TABLET PO SCH (10:13)
[2022-07-20] MEDS: amLODIPine BESYLATE 10 MG TABLET (FP) PO SCH (10:13)
[2022-07-20] MEDS: SERTRALINE HCL 25 MG TABLET (FP) PO SCH (10:13)
[2022-07-20] MEDS: levETIRAcetam 500 MG TABLET (FP) PO SCH ×2 (10:13→21:17)
[2022-07-20] MEDS: ATORVASTATIN CA 80 MG TABLET (FP) PO SCH (10:13)
[2022-07-20] MEDS: ISOSORBIDE MONONITRATE 60 MG TAB.SR.24H (FP) PO SCH (12:15)
[2022-07-20] MEDS: MUPIROCIN 2% TOPICAL OINTMENT FOR DECOLONIZATION NS SCH (12:17)
[2022-07-20] MEDS: CHLORHEXIDINE GLUCONATE 4% CLEANSER FOR DECOLONIZATION TP SCH (21:18)
[2022-07-21] MEDS: METOCLOPRAMIDE HCL 10 MG TABLET (FP) PO SCH ×4 (06:08→23:53)
[2022-07-21] MEDS: hydrALAZINE HCL 50 MG TABLET (FP) PO SCH ×4 (06:08→23:53)
[2022-07-21] MEDS: INSULIN SLIDING SCALE (NOVOLOG) 1 VIAL SQ SCH ×4 (06:09→23:04)
[2022-07-21] MEDS: SODIUM CHLORIDE 0.45% 1,000 ML IV SCH ×2 (06:10→17:25)
[2022-07-21] MEDS: CEFTRIAXONE 1 GM in DEXTROSE 5%-WATER - 50 ML IVPB SCH (09:31)
[2022-07-21] MEDS: SERTRALINE HCL 25 MG TABLET (FP) PO SCH (09:31)
[2022-07-21] MEDS: ATORVASTATIN CA 80 MG TABLET (FP) PO SCH (09:32)
[2022-07-21] MEDS: amLODIPine BESYLATE 10 MG TABLET (FP) PO SCH (09:32)
[2022-07-21] MEDS: ISOSORBIDE MONONITRATE 60 MG TAB.SR.24H (FP) PO SCH (09:32)
[2022-07-21] MEDS: levETIRAcetam 500 MG TABLET (FP) PO SCH ×3 (09:32→23:53)
[2022-07-21] MEDS: CARVEDILOL 25 MG TABLET (FP) PO SCH ×3 (09:32→23:53)
[2022-07-21] MEDS: PANTOPRAZOLE 40 MG TABLET PO SCH (09:32)
[2022-07-21] MEDS: CHLORHEXIDINE GLUCONATE 4% CLEANSER FOR DECOLONIZATION TP SCH (23:04)
[2022-07-22] MEDS: METOCLOPRAMIDE HCL 10 MG TABLET (FP) PO SCH ×2 (05:36→13:56)
[2022-07-22] MEDS: hydrALAZINE HCL 50 MG TABLET (FP) PO SCH ×2 (05:36→13:56)
[2022-07-22] MEDS: SODIUM CHLORIDE 0.45% 1,000 ML IV SCH (05:37)
[2022-07-22] MEDS: INSULIN SLIDING SCALE (NOVOLOG) 1 VIAL SQ SCH ×2 (06:16→10:02)
[2022-07-22 07:56] LABS: CALCIUM 8.4 mg/dL (8.5-10.1)
[2022-07-22 07:57] LABS: BLOOD UREA NITROGEN 41.1 mg/dL (7-18)
[2022-07-22 07:59] LABS: CREATININE 5.4 mg/dL (0.55-1.3)
[2022-07-22] MEDS: ISOSORBIDE MONONITRATE 60 MG TAB.SR.24H (FP) PO SCH (09:23)
[2022-07-22] MEDS: ATORVASTATIN CA 80 MG TABLET (FP) PO SCH (09:23)
[2022-07-22] MEDS: PANTOPRAZOLE 40 MG TABLET PO SCH (09:23)
[2022-07-22] MEDS: levETIRAcetam 500 MG TABLET (FP) PO SCH (09:23)
[2022-07-22] MEDS: CEFTRIAXONE 1 GM in DEXTROSE 5%-WATER - 50 ML IVPB SCH (09:23)
[2022-07-22] MEDS: amLODIPine BESYLATE 10 MG TABLET (FP) PO SCH (09:23)
[2022-07-22] MEDS: CARVEDILOL 25 MG TABLET (FP) PO SCH (09:23)
[2022-07-22] MEDS: SERTRALINE HCL 25 MG TABLET (FP) PO SCH (09:51)
[2022-07-22 10:18] VITALS: TEMP 97.8
[2022-07-22 10:19] VITALS: RESP 20
[2022-07-22 13:57] VITALS: BP 165/75; PULSE 74
== END 2022-07-22 16:04 | DRG 199 ==
LOC: JER 23:50 → JERBED 07-15 04:44 → JICU 07-15 21:17 → J2W 07-16 21:20
PROVIDERS: ADMIT Hospitalist; ATTEND Internal Medicine
DX: I16.1 Hypertensive emergency (principal); N17.9 Acute kidney failure, unspecified; E11.22 Type 2 diabetes mellitus with diabetic chronic kidney disease; I50.30 Unspecified diastolic (congestive) heart failure; F03.90 Unspecified dementia, unspecified severity, without behavioral disturbance, psychotic disturbance, mood disturbance, and anxiety; I08.1 Rheumatic disorders of both mitral and tricuspid valves; E03.9 Hypothyroidism, unspecified; E78.5 Hyperlipidemia, unspecified; G40.909 Epilepsy, unspecified, not intractable, without status epilepticus; N39.0 Urinary tract infection, site not specified; Z68.35 Body mass index [BMI] 35.0-35.9, adult; I13.0 Hypertensive heart and chronic kidney disease with heart failure and stage 1 through stage 4 chronic kidney disease, or unspecified chronic kidney disease; Z91.14 Patient's other noncompliance with medication regimen; N18.4 Chronic kidney disease, stage 4 (severe); D63.1 Anemia in chronic kidney disease
CPT/HCPCS: 36415; 70450-TC; 71045-TC-FY; 72125-TC; 76775-TC; 80048; 80053; 80061; 80177; 81003; 82272; 82550; 82728; 82962; 83036; 83540; 83550; 83605; 83615; 83735; 84100; 84443; 84484; 85025; 85027; 85045; 85610; 85730; 87086; 87186; 93005; 93010; 93306-TC; 97116-GP; 97161-GP; 99291; C9803-CS; U0003; U0005

== ENCOUNTER 2022-08-04 17:25 | Inpatient (IN) | payer OTHER ==
[2022-08-04 19:21] LABS: VENOUS BASE EXCESS -4.1 mmol/L (-2-2); VENOUS O2 SATURATION 90.9 % (70-80); VENOUS PCO2 38.1 mmHg (38-52); VENOUS PH 7.358 (7.310-7.410)
[2022-08-04 19:23] LABS: BASO % 0.5 % (0-2.0); EOS % 1.3 % (0-4.5); HEMATOCRIT 21.7 % (32.4-45.2); HEMOGLOBIN 7.2 GM/dL (10.7-15.3); LYMPH % 22.9 % (8-40); MCH 29.6 pg (25.7-33.7); MCHC 33.4 g/dl (32.0-36.0); MEAN CELL VOLUME 88.6 fl (80-96); MEAN PLT VOLUME 7.6 fl (7.5-11.1); MONO % 8.1 % (3.8-10.2); NEUT % 67.2 % (42.8-82.8); PLATELET COUNT 240 10^3/uL (134-434); RBC 2.45 M/mm3 (3.60-5.2); WHITE BLOOD COUNT 8.1 K/mm3 (4.0-10.0)
[2022-08-04 19:31] LABS: INR 0.91 (0.83-1.09); PROTHROMBIN TIME (PATIENT) 10.5 SEC (9.7-13.0)
[2022-08-04 19:34] LABS: ACTIVATED PTT 37.9 SECONDS (25.2-36.5)
[2022-08-04 19:43] LABS: MAGNESIUM 2.3 mg/dL (1.8-2.4)
[2022-08-04 19:44] LABS: CALCIUM 8.8 mg/dL (8.5-10.1)
[2022-08-04 19:45] LABS: BLOOD UREA NITROGEN 65.6 mg/dL (7-18)
[2022-08-04 19:48] LABS: CREATININE 6.8 mg/dL (0.55-1.3)
[2022-08-04 19:49] LABS: BILIRUBIN,TOTAL 0.3 mg/dL (0.2-1); TOT PROT 6.7 g/dl (6.4-8.2)
[2022-08-04 19:51] LABS: N-TERMINAL BNP 4576.8 pg/ml (5-125)
[2022-08-04 20:10] LABS: EPI CELLS 13 /uL (0-25.1); HYALINE CASTS 1 /uL (0-3.1); URINE APPEARANCE CLEAR; URINE BACTERIA 5 /uL (0-1359); URINE BILIRUBIN NEGATIVE (NEGATIVE); URINE COLOR YELLOW; URINE GLUCOSE (UA) TRACE (NEGATIVE); URINE KETONE NEGATIVE (NEGATIVE); URINE LEUK ESTERASE NEGATIVE (NEGATIVE); URINE NITRITE NEGATIVE (NEGATIVE); URINE PROTEIN 4+ (NEGATIVE); URINE RBC 16 /uL (0-23.9); URINE UROBILINOGEN 0.2 mg/dL (0.2-1.0); URINE WBC 10 /uL (0-25.8)
[2022-08-04] MEDS ORDERED: FUROSEMIDE 40 MG/4 ML INJECTABLE VIAL IVPUSH ONE (20:19)
[2022-08-04] MEDS ORDERED: DEXTROSE 50%-WATER - 25 GM/50 ML VIAL IVPUSH ONE (20:40)
[2022-08-04] MEDS ORDERED: DEXTROSE 50%-WATER 25 GM/50 ML DISP.SYRIN ONE (20:52)
[2022-08-04] MEDS ORDERED: FUROSEMIDE 40 MG/4 ML INJECTABLE VIAL ONE (20:53)
[2022-08-05] MEDS ORDERED: ALBUTEROL SO4 0.083% IH SOL 2.5 MG/3 ML VIAL.NEB. NEB PRN (01:35)
[2022-08-05] MEDS ORDERED: hydrALAZINE HCL 20 MG/ML VIAL ONE ×2 (06:44→13:52)
[2022-08-05] MEDS: hydrALAZINE HCL 20 MG/ML VIAL IVPUSH PRN ×2 (06:48→14:03)
[2022-08-05] MEDS: hydrALAZINE HCL 50 MG TABLET (FP) PO SCH (08:39)
[2022-08-05] MEDS ORDERED: FAMOTIDINE 20 MG TABLET ONE (08:51)
[2022-08-05] MEDS ORDERED: amLODIPine BESYLATE 10 MG TABLET (FP) ONE (08:51)
[2022-08-05] MEDS ORDERED: ISOSORBIDE MONONITRATE 60 MG TAB.SR.24H (FP) PO ONE (08:51)
[2022-08-05] MEDS ORDERED: levETIRAcetam 500 MG/5 ML INJECTION VIAL IVPB ONE ×2 (08:51→22:45)
[2022-08-05] MEDS ORDERED: FAMOTIDINE 20 MG TABLET PO SCH (10:00)
[2022-08-05] MEDS ORDERED: levETIRAcetam 500 MG TABLET (FP) PO SCH (10:00)
[2022-08-05 10:07] LABS: BASO % 1.1 % (0-2.0); EOS % 2.5 % (0-4.5); HEMATOCRIT 20.9 % (32.4-45.2); HEMOGLOBIN 7.1 GM/dL (10.7-15.3); LYMPH % 23.6 % (8-40); MCH 29.9 pg (25.7-33.7); MCHC 33.8 g/dl (32.0-36.0); MEAN CELL VOLUME 88.5 fl (80-96); MEAN PLT VOLUME 7.2 fl (7.5-11.1); MONO % 6.3 % (3.8-10.2); NEUT % 66.5 % (42.8-82.8); PLATELET COUNT 242 10^3/uL (134-434); RBC 2.36 M/mm3 (3.60-5.2); RDW 16.1 % (11.6-15.6)
[2022-08-05] MEDS: amLODIPine BESYLATE 10 MG TABLET (FP) PO SCH (10:11)
[2022-08-05] MEDS: levETIRAcetam 500 MG/5 ML INJECTION VIAL IVPB SCH ×2 (10:11→22:51)
[2022-08-05] MEDS: FAMOTIDINE 10 MG TABLET PO SCH (10:11)
[2022-08-05] MEDS: ISOSORBIDE MONONITRATE 60 MG TAB.SR.24H (FP) PO SCH (10:11)
[2022-08-05] MEDS ORDERED: METOPROLOL TARTRATE 25 MG TABLET (FP) ONE ×2 (10:21→22:45)
[2022-08-05 10:31] LABS: CALCIUM 8.9 mg/dL (8.5-10.1)
[2022-08-05 10:32] LABS: ALBUMIN 2.6 g/dl (3.4-5.0); BLOOD UREA NITROGEN 62.8 mg/dL (7-18); MAGNESIUM 2.2 mg/dL (1.8-2.4)
[2022-08-05] MEDS ORDERED: ACETAMINOPHEN INJECTION 0 ML IVPB ONE (10:32)
[2022-08-05 10:35] LABS: CREATININE 6.9 mg/dL (0.55-1.3)
[2022-08-05 10:36] LABS: BILIRUBIN,TOTAL 0.3 mg/dL (0.2-1); TOT PROT 6.1 g/dl (6.4-8.2)
[2022-08-05] MEDS: METOPROLOL TARTRATE 25 MG TABLET (FP) PO SCH ×2 (11:17→22:52)
[2022-08-05] MEDS ORDERED: FUROSEMIDE 40 MG/4 ML INJECTABLE VIAL ONE (13:53)
[2022-08-05] MEDS ORDERED: METOCLOPRAMIDE HCL INJECTION 10 MG/2 ML VIAL ONE ×2 (13:53→14:28)
[2022-08-05] MEDS: FUROSEMIDE 40 MG/4 ML INJECTABLE VIAL IVPB SCH (14:03)
[2022-08-05] MEDS: METOCLOPRAMIDE HCL INJECTION 10 MG/2 ML VIAL IVPUSH PRN (14:03)
[2022-08-05] MEDS ORDERED: ATORVASTATIN CA 80 MG TABLET (FP) ONE (22:45)
[2022-08-05] MEDS ORDERED: HEPARIN NA (PORCINE) 5,000 UNITS/ML 1ML VIAL ONE (22:45)
[2022-08-05] MEDS: HEPARIN NA (PORCINE) 5,000 UNITS/ML 1ML VIAL SQ SCH (22:51)
[2022-08-05] MEDS: ATORVASTATIN CA 80 MG TABLET (FP) PO SCH (22:51)
[2022-08-06] MEDS: hydrALAZINE HCL 20 MG/ML VIAL IVPUSH PRN ×2 (05:14→12:28)
[2022-08-06] MEDS: FUROSEMIDE 40 MG/4 ML INJECTABLE VIAL IVPB SCH ×2 (05:14→14:02)
[2022-08-06] MEDS: amLODIPine BESYLATE 10 MG TABLET (FP) PO SCH (10:27)
[2022-08-06] MEDS: FAMOTIDINE 10 MG TABLET PO SCH (10:27)
[2022-08-06] MEDS: ISOSORBIDE MONONITRATE 60 MG TAB.SR.24H (FP) PO SCH (10:27)
[2022-08-06] MEDS: HEPARIN NA (PORCINE) 5,000 UNITS/ML 1ML VIAL SQ SCH ×2 (10:28→21:39)
[2022-08-06] MEDS: METOPROLOL TARTRATE 25 MG TABLET (FP) PO SCH ×2 (10:28→21:40)
[2022-08-06] MEDS: levETIRAcetam 500 MG/5 ML INJECTION VIAL IVPB SCH (10:28)
[2022-08-06] MEDS ORDERED: SODIUM CHLORIDE NASAL SPRAY 44 ML BOTTLE NS PRN (11:23)
[2022-08-06 13:00] LABS: EOS % 3.7 % (0-4.5); HEMATOCRIT 23.3 % (32.4-45.2); HEMOGLOBIN 7.9 GM/dL (10.7-15.3); LYMPH % 22.4 % (8-40); MCH 30.2 pg (25.7-33.7); MCHC 34.1 g/dl (32.0-36.0); MEAN CELL VOLUME 88.6 fl (80-96); MEAN PLT VOLUME 7.3 fl (7.5-11.1); MONO % 6.1 % (3.8-10.2); NEUT % 66.8 % (42.8-82.8); PLATELET COUNT 254 10^3/uL (134-434); RBC 2.63 M/mm3 (3.60-5.2); RDW 15.8 % (11.6-15.6); WHITE BLOOD COUNT 6.6 K/mm3 (4.0-10.0)
[2022-08-06 13:16] LABS: CALCIUM 9.1 mg/dL (8.5-10.1)
[2022-08-06 13:17] LABS: ALBUMIN 2.8 g/dl (3.4-5.0); BLOOD UREA NITROGEN 60.4 mg/dL (7-18)
[2022-08-06 13:20] LABS: CREATININE 7.1 mg/dL (0.55-1.3)
[2022-08-06 13:21] LABS: BILIRUBIN,TOTAL 0.4 mg/dL (0.2-1); TOT PROT 6.6 g/dl (6.4-8.2)
[2022-08-06] MEDS: ATORVASTATIN CA 80 MG TABLET (FP) PO SCH (21:39)
[2022-08-06] MEDS: levETIRAcetam 500 MG/5 ML ORAL SOLUTION (UNIT-DOSE CUPS) PO SCH (21:39)
[2022-08-06] MEDS: hydrALAZINE HCL 50 MG TABLET (FP) PO SCH (21:39)
[2022-08-06] MEDS: NIFEdipine E.R 60 MG TABLET PO SCH (21:40)
[2022-08-07] MEDS: hydrALAZINE HCL 50 MG TABLET (FP) PO SCH ×4 (07:39→22:33)
[2022-08-07] MEDS: NIFEdipine E.R 60 MG TABLET PO SCH (09:06)
[2022-08-07] MEDS: FAMOTIDINE 10 MG TABLET PO SCH (09:06)
[2022-08-07] MEDS: ISOSORBIDE MONONITRATE 60 MG TAB.SR.24H (FP) PO SCH (09:06)
[2022-08-07] MEDS: HEPARIN NA (PORCINE) 5,000 UNITS/ML 1ML VIAL SQ SCH ×2 (09:06→22:33)
[2022-08-07] MEDS: METOPROLOL TARTRATE 25 MG TABLET (FP) PO SCH ×2 (09:06→22:33)
[2022-08-07] MEDS: levETIRAcetam 500 MG/5 ML ORAL SOLUTION (UNIT-DOSE CUPS) PO SCH ×2 (09:08→22:33)
[2022-08-07 13:24] LABS: ALBUMIN 2.6 g/dl (3.4-5.0); BLOOD UREA NITROGEN 64.9 mg/dL (7-18)
[2022-08-07 13:27] LABS: CREATININE 7.2 mg/dL (0.55-1.3); PHOSPHOROUS 5.2 mg/dL (2.5-4.9)
[2022-08-07 13:29] LABS: BILIRUBIN,TOTAL 0.4 mg/dL (0.2-1); TOT PROT 6.2 g/dl (6.4-8.2)
[2022-08-07 13:33] LABS: CALCIUM 8.4 mg/dL (8.5-10.1)
[2022-08-07] MEDS: amLODIPine BESYLATE 10 MG TABLET (FP) PO SCH ×2 (14:25→15:37)
[2022-08-07] MEDS: ATORVASTATIN CA 80 MG TABLET (FP) PO SCH (22:33)
[2022-08-08] MEDS: hydrALAZINE HCL 50 MG TABLET (FP) PO SCH ×3 (06:07→22:18)
[2022-08-08] MEDS: hydrALAZINE HCL 20 MG/ML VIAL IVPUSH PRN (06:57)
[2022-08-08] MEDS: ISOSORBIDE MONONITRATE 60 MG TAB.SR.24H (FP) PO SCH (09:33)
[2022-08-08] MEDS: METOPROLOL TARTRATE 25 MG TABLET (FP) PO SCH ×2 (09:33→22:18)
[2022-08-08] MEDS: FAMOTIDINE 10 MG TABLET PO SCH (09:33)
[2022-08-08] MEDS: HEPARIN NA (PORCINE) 5,000 UNITS/ML 1ML VIAL SQ SCH ×2 (09:33→22:18)
[2022-08-08] MEDS: levETIRAcetam 500 MG/5 ML ORAL SOLUTION (UNIT-DOSE CUPS) PO SCH ×2 (09:33→22:18)
[2022-08-08] MEDS: amLODIPine BESYLATE 10 MG TABLET (FP) PO SCH (09:33)
[2022-08-08] MEDS: FUROSEMIDE 40 MG/4 ML INJECTABLE VIAL IVPUSH SCH (14:12)
[2022-08-08] MEDS ORDERED: cloNIDine-TTS 0.1 MG/24 HRS PATCH.TDWK TD SCH (15:49)
[2022-08-08] MEDS: ATORVASTATIN CA 80 MG TABLET (FP) PO SCH (22:18)
[2022-08-09] MEDS: hydrALAZINE HCL 50 MG TABLET (FP) PO SCH ×3 (06:45→22:35)
[2022-08-09] MEDS: hydrALAZINE HCL 20 MG/ML VIAL IVPUSH PRN ×2 (09:39→15:53)
[2022-08-09] MEDS: FUROSEMIDE 40 MG/4 ML INJECTABLE VIAL IVPUSH SCH (11:12)
[2022-08-09] MEDS: HEPARIN NA (PORCINE) 5,000 UNITS/ML 1ML VIAL SQ SCH ×2 (11:19→22:35)
[2022-08-09] MEDS: FAMOTIDINE 10 MG TABLET PO SCH ×2 (11:22→12:31)
[2022-08-09] MEDS: levETIRAcetam 500 MG/5 ML ORAL SOLUTION (UNIT-DOSE CUPS) PO SCH ×3 (11:23→22:35)
[2022-08-09] MEDS: ISOSORBIDE MONONITRATE 60 MG TAB.SR.24H (FP) PO SCH ×2 (11:23→12:29)
[2022-08-09] MEDS: METOPROLOL TARTRATE 25 MG TABLET (FP) PO SCH ×2 (11:23→22:36)
[2022-08-09] MEDS: amLODIPine BESYLATE 10 MG TABLET (FP) PO SCH ×2 (11:23→12:29)
[2022-08-09] MEDS: METOCLOPRAMIDE HCL INJECTION 10 MG/2 ML VIAL IVPUSH PRN (12:57)
[2022-08-09 15:23] LABS: BASO % 1.3 % (0-2.0); EOS % 3.3 % (0-4.5); HEMATOCRIT 21.9 % (32.4-45.2); HEMOGLOBIN 7.2 GM/dL (10.7-15.3); LYMPH % 25.7 % (8-40); MCH 28.9 pg (25.7-33.7); MCHC 32.8 g/dl (32.0-36.0); MEAN CELL VOLUME 88.1 fl (80-96); MEAN PLT VOLUME 8.2 fl (7.5-11.1); MONO % 5.6 % (3.8-10.2); NEUT % 64.1 % (42.8-82.8); PLATELET COUNT 272 10^3/uL (134-434); RBC 2.49 M/mm3 (3.60-5.2); RDW 15.5 % (11.6-15.6)
[2022-08-09 15:41] LABS: CHLORIDE 108 mmol/L (98-107); SODIUM 143 mmol/L (136-145)
[2022-08-09 15:44] LABS: ANION GAP 8 MMOL/L (8-16); BLOOD UREA NITROGEN 63.5 mg/dL (7-18); CALCIUM 8.5 mg/dL (8.5-10.1); CO2 26 mmol/L (21-32); GLUCOSE,RANDOM 132 mg/dL (74-106)
[2022-08-09 15:45] LABS: ALBUMIN 2.7 g/dl (3.4-5.0)
[2022-08-09 15:48] LABS: SGOT/AST 24 U/L (15-37); SGPT/ALT 33 U/L (13-61)
[2022-08-09 15:49] LABS: BILIRUBIN,TOTAL 0.4 mg/dL (0.2-1); TOT PROT 6.4 g/dl (6.4-8.2)
[2022-08-09 15:50] LABS: ALK PHOS 120 U/L (45-117)
[2022-08-09 15:53] LABS: CREATININE 7.6 mg/dL (0.55-1.3)
[2022-08-09] MEDS: ATORVASTATIN CA 80 MG TABLET (FP) PO SCH (22:36)
[2022-08-10] MEDS: hydrALAZINE HCL 50 MG TABLET (FP) PO SCH ×3 (06:44→22:24)
[2022-08-10] MEDS: levETIRAcetam 500 MG/5 ML ORAL SOLUTION (UNIT-DOSE CUPS) PO SCH ×2 (10:19→22:23)
[2022-08-10] MEDS: METOPROLOL TARTRATE 25 MG TABLET (FP) PO SCH ×2 (10:19→22:25)
[2022-08-10] MEDS: ISOSORBIDE MONONITRATE 60 MG TAB.SR.24H (FP) PO SCH (10:19)
[2022-08-10] MEDS: FAMOTIDINE 10 MG TABLET PO SCH (10:19)
[2022-08-10] MEDS: FUROSEMIDE 40 MG/4 ML INJECTABLE VIAL IVPUSH SCH ×2 (10:19→11:59)
[2022-08-10] MEDS: HEPARIN NA (PORCINE) 5,000 UNITS/ML 1ML VIAL SQ SCH ×2 (10:21→22:24)
[2022-08-10] MEDS: amLODIPine BESYLATE 10 MG TABLET (FP) PO SCH (10:22)
[2022-08-10 12:40] VITALS: BMI 25.2
[2022-08-10 16:55] LABS: BASO % 0.2 % (0-2.0); EOS % 3.5 % (0-4.5); HEMATOCRIT 22.7 % (32.4-45.2); HEMOGLOBIN 7.7 GM/dL (10.7-15.3); LYMPH % 24.1 % (8-40); MCH 29.5 pg (25.7-33.7); MCHC 33.8 g/dl (32.0-36.0); MEAN CELL VOLUME 87.2 fl (80-96); MEAN PLT VOLUME 7.8 fl (7.5-11.1); MONO % 5.9 % (3.8-10.2); NEUT % 66.3 % (42.8-82.8); PLATELET COUNT 290 10^3/uL (134-434); RDW 15.7 % (11.6-15.6); WHITE BLOOD COUNT 5.4 K/mm3 (4.0-10.0)
[2022-08-10 17:13] LABS: CHLORIDE 106 mmol/L (98-107); SODIUM 141 mmol/L (136-145)
[2022-08-10 17:21] LABS: ALBUMIN 2.8 g/dl (3.4-5.0); ANION GAP 9 MMOL/L (8-16); BLOOD UREA NITROGEN 60.9 mg/dL (7-18); CALCIUM 8.7 mg/dL (8.5-10.1); CO2 27 mmol/L (21-32); GLUCOSE,RANDOM 154 mg/dL (74-106)
[2022-08-10 17:23] LABS: SGOT/AST 23 U/L (15-37); SGPT/ALT 32 U/L (13-61); TOT PROT 6.4 g/dl (6.4-8.2)
[2022-08-10 17:25] LABS: ALK PHOS 121 U/L (45-117); BILIRUBIN,TOTAL 0.3 mg/dL (0.2-1); CREATININE 7.6 mg/dL (0.55-1.3)
[2022-08-10] MEDS: ATORVASTATIN CA 80 MG TABLET (FP) PO SCH (22:25)
[2022-08-11] MEDS: hydrALAZINE HCL 50 MG TABLET (FP) PO SCH ×3 (06:43→22:06)
[2022-08-11] MEDS: amLODIPine BESYLATE 10 MG TABLET (FP) PO SCH (09:32)
[2022-08-11] MEDS: ISOSORBIDE MONONITRATE 60 MG TAB.SR.24H (FP) PO SCH (09:32)
[2022-08-11] MEDS: METOPROLOL TARTRATE 25 MG TABLET (FP) PO SCH ×2 (09:33→22:06)
[2022-08-11] MEDS: FAMOTIDINE 10 MG TABLET PO SCH (09:33)
[2022-08-11] MEDS: FUROSEMIDE 40 MG/4 ML INJECTABLE VIAL IVPUSH SCH (09:34)
[2022-08-11] MEDS: HEPARIN NA (PORCINE) 5,000 UNITS/ML 1ML VIAL SQ SCH ×2 (09:34→22:06)
[2022-08-11] MEDS: levETIRAcetam 500 MG/5 ML ORAL SOLUTION (UNIT-DOSE CUPS) PO SCH ×2 (09:35→23:34)
[2022-08-11] MEDS ORDERED: cloNIDine-TTS 0.2 MG/24 HOURS PATCH.TDWK TD SCH (10:00)
[2022-08-11] MEDS: hydrALAZINE HCL 20 MG/ML VIAL IVPUSH PRN (13:52)
[2022-08-11] MEDS: ATORVASTATIN CA 80 MG TABLET (FP) PO SCH (22:06)
[2022-08-12] MEDS: hydrALAZINE HCL 50 MG TABLET (FP) PO SCH ×4 (06:00→21:45)
[2022-08-12 08:10] LABS: BASO % 1.2 % (0-2.0); EOS % 4.5 % (0-4.5); HEMATOCRIT 20.6 % (32.4-45.2); LYMPH % 35.4 % (8-40); MCH 28.6 pg (25.7-33.7); MCHC 32.8 g/dl (32.0-36.0); MEAN CELL VOLUME 87.2 fl (80-96); MEAN PLT VOLUME 8.5 fl (7.5-11.1); MONO % 7.5 % (3.8-10.2); NEUT % 51.4 % (42.8-82.8); PLATELET COUNT 277 10^3/uL (134-434); RBC 2.37 M/mm3 (3.60-5.2); RDW 15.4 % (11.6-15.6); WHITE BLOOD COUNT 4.5 K/mm3 (4.0-10.0)
[2022-08-12 08:21] LABS: CHLORIDE 106 mmol/L (98-107); SODIUM 141 mmol/L (136-145)
[2022-08-12 08:25] LABS: CALCIUM 8.4 mg/dL (8.5-10.1)
[2022-08-12 08:26] LABS: ANION GAP 9 MMOL/L (8-16); BLOOD UREA NITROGEN 61.7 mg/dL (7-18); CO2 27 mmol/L (21-32); GLUCOSE,RANDOM 110 mg/dL (74-106)
[2022-08-12 08:34] LABS: HEMOGLOBIN 6.8 GM/dL (10.7-15.3)
[2022-08-12] MEDS: HEPARIN NA (PORCINE) 5,000 UNITS/ML 1ML VIAL SQ SCH (10:45)
[2022-08-12] MEDS: ISOSORBIDE MONONITRATE 60 MG TAB.SR.24H (FP) PO SCH (10:45)
[2022-08-12] MEDS: FAMOTIDINE 10 MG TABLET PO SCH (10:45)
[2022-08-12] MEDS: levETIRAcetam 500 MG/5 ML ORAL SOLUTION (UNIT-DOSE CUPS) PO SCH (10:46)
[2022-08-12] MEDS: FUROSEMIDE 40 MG/4 ML INJECTABLE VIAL IVPUSH SCH (10:46)
[2022-08-12] MEDS: amLODIPine BESYLATE 10 MG TABLET (FP) PO SCH (10:46)
[2022-08-12] MEDS: METOPROLOL TARTRATE 25 MG TABLET (FP) PO SCH ×3 (10:46→21:45)
[2022-08-12] MEDS: levETIRAcetam 500 MG/5 ML INJECTION VIAL IVPB SCH ×2 (13:26→21:30)
[2022-08-12] MEDS: ATORVASTATIN CA 80 MG TABLET (FP) PO SCH ×2 (21:32→21:46)
[2022-08-13] MEDS: hydrALAZINE HCL 50 MG TABLET (FP) PO SCH ×3 (05:32→21:40)
[2022-08-13] MEDS ORDERED: cloNIDine-TTS 0.1 MG/24 HRS PATCH.TDWK TD SCH (10:00)
[2022-08-13] MEDS: levETIRAcetam 500 MG/5 ML INJECTION VIAL IVPB SCH ×2 (10:09→21:40)
[2022-08-13] MEDS: FUROSEMIDE 40 MG/4 ML INJECTABLE VIAL IVPUSH SCH (10:11)
[2022-08-13] MEDS: FAMOTIDINE 10 MG TABLET PO SCH (10:13)
[2022-08-13] MEDS: METOPROLOL TARTRATE 25 MG TABLET (FP) PO SCH ×2 (10:13→21:42)
[2022-08-13] MEDS: amLODIPine BESYLATE 10 MG TABLET (FP) PO SCH (10:13)
[2022-08-13] MEDS: ISOSORBIDE MONONITRATE 60 MG TAB.SR.24H (FP) PO SCH (10:13)
[2022-08-13] MEDS ORDERED: LIDOCAINE HCL 1%, 10 MG/ML (20ML VIAL) ONE (15:11)
[2022-08-13] MEDS ORDERED: HEPARIN NA (PORCINE) 5,000 UNITS/ML 1ML VIAL ONE (15:11)
[2022-08-13] MEDS ORDERED: PROPOFOL 20 ML ONE (15:52)
[2022-08-13] MEDS ORDERED: MIDAZOLAM HCL 2 MG/2 ML SINGLE DOSE VIAL ONE (15:52)
[2022-08-13] MEDS ORDERED: ceFAZolin SODIUM 1 GM VIAL ONE (16:38)
[2022-08-13] MEDS ORDERED: HEPARIN NA (PORCINE) 5,000 UNITS/ML 1ML VIAL SQ ONE ×2 (16:42)
[2022-08-13] MEDS ORDERED: LIDOCAINE HCL 1%, 10 MG/ML (20ML VIAL) NR ONE ×4 (16:42)
[2022-08-13] MEDS ORDERED: PROPOFOL 40 ML ONE (16:59)
[2022-08-13] MEDS ORDERED: METOCLOPRAMIDE HCL INJECTION 10 MG/2 ML VIAL IVPUSH PRN (17:25)
[2022-08-13] MEDS ORDERED: SODIUM CHLORIDE NASAL SPRAY 44 ML BOTTLE NS PRN (17:25)
[2022-08-13] MEDS ORDERED: ONDANSETRON 4 MG/2 ML VIAL IVPUSH PRN (17:55)
[2022-08-13] MEDS: ATORVASTATIN CA 80 MG TABLET (FP) PO SCH (21:42)
[2022-08-14] MEDS: hydrALAZINE HCL 50 MG TABLET (FP) PO SCH ×3 (06:15→21:28)
[2022-08-14] MEDS: amLODIPine BESYLATE 10 MG TABLET (FP) PO SCH ×2 (09:04→09:29)
[2022-08-14] MEDS: METOPROLOL TARTRATE 25 MG TABLET (FP) PO SCH ×3 (09:04→21:28)
[2022-08-14] MEDS: ISOSORBIDE MONONITRATE 60 MG TAB.SR.24H (FP) PO SCH ×2 (09:04→09:29)
[2022-08-14] MEDS: FAMOTIDINE 10 MG TABLET PO SCH ×2 (09:04→09:28)
[2022-08-14] MEDS: levETIRAcetam 500 MG/5 ML INJECTION VIAL IVPB SCH ×2 (09:10→21:29)
[2022-08-14] MEDS: hydrALAZINE HCL 20 MG/ML VIAL IVPUSH PRN ×2 (09:11→13:42)
[2022-08-14] MEDS ORDERED: SODIUM CHLORIDE 250 ML IV PRN ×2 (09:52→23:42)
[2022-08-14] MEDS ORDERED: FUROSEMIDE 40 MG/4 ML INJECTABLE VIAL IVPUSH SCH (10:00)
[2022-08-14 12:26] LABS: EOS % 4.3 % (0-4.5); HEMATOCRIT 19.9 % (32.4-45.2); LYMPH % 26.7 % (8-40); MCHC 33.5 g/dl (32.0-36.0); MEAN CELL VOLUME 86.6 fl (80-96); MEAN PLT VOLUME 7.6 fl (7.5-11.1); MONO % 6.8 % (3.8-10.2); NEUT % 61.2 % (42.8-82.8); PLATELET COUNT 296 10^3/uL (134-434); RDW 15.8 % (11.6-15.6); WHITE BLOOD COUNT 4.6 K/mm3 (4.0-10.0)
[2022-08-14 12:41] LABS: HEMOGLOBIN 6.7 GM/dL (10.7-15.3)
[2022-08-14] MEDS: ATORVASTATIN CA 80 MG TABLET (FP) PO SCH (21:28)
[2022-08-14] MEDS ORDERED: SODIUM CHLORIDE NASAL SPRAY 44 ML BOTTLE NS PRN (23:42)
[2022-08-14] MEDS ORDERED: METOCLOPRAMIDE HCL INJECTION 10 MG/2 ML VIAL IVPUSH PRN (23:42)
[2022-08-14] MEDS ORDERED: hydrALAZINE HCL 20 MG/ML VIAL IVPUSH PRN (23:42)
[2022-08-15] MEDS: hydrALAZINE HCL 20 MG/ML VIAL IVPB PRN (00:32)
[2022-08-15] MEDS: hydrALAZINE HCL 50 MG TABLET (FP) PO SCH ×4 (06:58→23:37)
[2022-08-15] MEDS ORDERED: POVIDONE-IODINE OINTMENT 10% - 28.4 GM TUBE ONE (07:40)
[2022-08-15] MEDS ORDERED: LIDOCAINE HCL 1%, 10 MG/ML (20ML VIAL) ONE (07:41)
[2022-08-15] MEDS ORDERED: HEPARIN NA (PORCINE) 5,000 UNITS/ML 1ML VIAL ONE (07:41)
[2022-08-15] MEDS ORDERED: cloNIDine-TTS 0.1 MG/24 HRS PATCH.TDWK TD SCH (10:00)
[2022-08-15] MEDS: FUROSEMIDE 40 MG/4 ML INJECTABLE VIAL IVPUSH SCH (10:07)
[2022-08-15] MEDS: amLODIPine BESYLATE 10 MG TABLET (FP) PO SCH (11:00)
[2022-08-15] MEDS: levETIRAcetam 500 MG/5 ML INJECTION VIAL IVPB SCH ×2 (11:00→23:37)
[2022-08-15] MEDS: FAMOTIDINE 10 MG TABLET PO SCH (11:00)
[2022-08-15] MEDS: METOPROLOL TARTRATE 25 MG TABLET (FP) PO SCH ×2 (11:00→23:38)
[2022-08-15] MEDS: ISOSORBIDE MONONITRATE 60 MG TAB.SR.24H (FP) PO SCH (11:00)
[2022-08-15 11:26] LABS: BASO % 0.8 % (0-2.0); HEMATOCRIT 22.8 % (32.4-45.2); HEMOGLOBIN 7.7 GM/dL (10.7-15.3); MCHC 33.5 g/dl (32.0-36.0); MEAN CELL VOLUME 86.5 fl (80-96); MEAN PLT VOLUME 7.6 fl (7.5-11.1); MONO % 8.7 % (3.8-10.2); NEUT % 57.5 % (42.8-82.8); PLATELET COUNT 272 10^3/uL (134-434); RBC 2.64 M/mm3 (3.60-5.2); RDW 15.5 % (11.6-15.6); WHITE BLOOD COUNT 6.2 K/mm3 (4.0-10.0)
[2022-08-15] MEDS ORDERED: SODIUM CHLORIDE 250 ML IV PRN (13:03)
[2022-08-15] MEDS ORDERED: INSULIN SLIDING SCALE (NOVOLOG) 1 VIAL SQ ONE (16:38)
[2022-08-15] MEDS: ATORVASTATIN CA 80 MG TABLET (FP) PO SCH (23:38)
[2022-08-16] MEDS: hydrALAZINE HCL 50 MG TABLET (FP) PO SCH ×4 (06:40→21:48)
[2022-08-16 08:41] LABS: HEMATOCRIT 21.5 % (32.4-45.2); HEMOGLOBIN 7.6 GM/dL (10.7-15.3); MCH 30.7 pg (25.7-33.7); MCHC 35.3 g/dl (32.0-36.0); MEAN CELL VOLUME 86.9 fl (80-96); MEAN PLT VOLUME 7.3 fl (7.5-11.1); PLATELET COUNT 246 10^3/uL (134-434); RBC 2.47 M/mm3 (3.60-5.2); RDW 15.3 % (11.6-15.6); WHITE BLOOD COUNT 5.9 K/mm3 (4.0-10.0)
[2022-08-16 09:01] LABS: CALCIUM 8.1 mg/dL (8.5-10.1)
[2022-08-16 09:02] LABS: BLOOD UREA NITROGEN 44.5 mg/dL (7-18)
[2022-08-16 09:04] LABS: CREATININE 7.2 mg/dL (0.55-1.3)
[2022-08-16] MEDS: amLODIPine BESYLATE 10 MG TABLET (FP) PO SCH (11:48)
[2022-08-16] MEDS: FAMOTIDINE 10 MG TABLET PO SCH (11:48)
[2022-08-16] MEDS: FUROSEMIDE 40 MG/4 ML INJECTABLE VIAL IVPUSH SCH (11:49)
[2022-08-16] MEDS: VITAMIN B COMP W-C 1 EA TABLET (NEPHRO-VITE) PO SCH (11:49)
[2022-08-16] MEDS: METOPROLOL TARTRATE 25 MG TABLET (FP) PO SCH ×2 (11:49→21:48)
[2022-08-16] MEDS: ISOSORBIDE MONONITRATE 60 MG TAB.SR.24H (FP) PO SCH (11:49)
[2022-08-16] MEDS: levETIRAcetam 500 MG/5 ML INJECTION VIAL IVPB SCH ×2 (11:49→21:48)
[2022-08-16] MEDS: ATORVASTATIN CA 80 MG TABLET (FP) PO SCH (21:48)
[2022-08-17] MEDS: hydrALAZINE HCL 50 MG TABLET (FP) PO SCH ×3 (05:57→21:46)
[2022-08-17 07:46] VITALS: RESP 18
[2022-08-17] MEDS: levETIRAcetam 500 MG/5 ML INJECTION VIAL IVPB SCH ×2 (10:00→21:46)
[2022-08-17] MEDS: ISOSORBIDE MONONITRATE 60 MG TAB.SR.24H (FP) PO SCH (10:02)
[2022-08-17] MEDS: METOPROLOL TARTRATE 25 MG TABLET (FP) PO SCH ×2 (10:02→21:46)
[2022-08-17] MEDS: VITAMIN B COMP W-C 1 EA TABLET (NEPHRO-VITE) PO SCH (10:02)
[2022-08-17] MEDS: FAMOTIDINE 10 MG TABLET PO SCH (10:02)
[2022-08-17] MEDS: amLODIPine BESYLATE 10 MG TABLET (FP) PO SCH (10:03)
[2022-08-17] MEDS: FUROSEMIDE 40 MG/4 ML INJECTABLE VIAL IVPUSH SCH (10:03)
[2022-08-17] MEDS: ATORVASTATIN CA 80 MG TABLET (FP) PO SCH (21:46)
[2022-08-18] MEDS: hydrALAZINE HCL 20 MG/ML VIAL IVPB PRN (04:41)
[2022-08-18] MEDS: hydrALAZINE HCL 50 MG TABLET (FP) PO SCH ×3 (06:23→22:03)
[2022-08-18] MEDS ORDERED: cloNIDine-TTS 0.2 MG/24 HOURS PATCH.TDWK TD SCH ×2 (10:00)
[2022-08-18] MEDS: VITAMIN B COMP W-C 1 EA TABLET (NEPHRO-VITE) PO SCH ×2 (10:10→12:28)
[2022-08-18] MEDS: amLODIPine BESYLATE 10 MG TABLET (FP) PO SCH ×2 (10:10→12:28)
[2022-08-18] MEDS: ISOSORBIDE MONONITRATE 60 MG TAB.SR.24H (FP) PO SCH ×2 (10:10→12:28)
[2022-08-18] MEDS: METOPROLOL TARTRATE 25 MG TABLET (FP) PO SCH ×3 (10:10→22:03)
[2022-08-18] MEDS: FUROSEMIDE 40 MG/4 ML INJECTABLE VIAL IVPUSH SCH (10:10)
[2022-08-18] MEDS: levETIRAcetam 500 MG/5 ML INJECTION VIAL IVPB SCH ×2 (10:10→22:04)
[2022-08-18] MEDS: FAMOTIDINE 10 MG TABLET PO SCH ×2 (10:22→12:28)
[2022-08-18] MEDS: ATORVASTATIN CA 80 MG TABLET (FP) PO SCH (22:04)
[2022-08-19] MEDS: hydrALAZINE HCL 50 MG TABLET (FP) PO SCH ×3 (06:17→21:48)
[2022-08-19] MEDS ORDERED: SODIUM CHLORIDE 250 ML IV PRN (06:27)
[2022-08-19] MEDS ORDERED: EPOETIN ALFA-EPBX 4,000 UNIT/ML VIAL SQ ONE (07:00)
[2022-08-19 09:05] LABS: BASO % 0.8 % (0-2.0); EOS % 3.4 % (0-4.5); HEMOGLOBIN 7.6 GM/dL (10.7-15.3); LYMPH % 27.8 % (8-40); MCH 28.9 pg (25.7-33.7); MCHC 33.2 g/dl (32.0-36.0); MEAN CELL VOLUME 87.2 fl (80-96); MEAN PLT VOLUME 8.7 fl (7.5-11.1); PLATELET COUNT 271 10^3/uL (134-434); RBC 2.64 M/mm3 (3.60-5.2); RDW 15.6 % (11.6-15.6); WHITE BLOOD COUNT 7.3 K/mm3 (4.0-10.0)
[2022-08-19 09:32] LABS: CALCIUM 8.7 mg/dL (8.5-10.1)
[2022-08-19 09:33] LABS: ALBUMIN 2.3 g/dl (3.4-5.0); BLOOD UREA NITROGEN 37.1 mg/dL (7-18)
[2022-08-19 09:36] LABS: CREATININE 7.1 mg/dL (0.55-1.3)
[2022-08-19 09:37] LABS: BILIRUBIN,TOTAL 0.3 mg/dL (0.2-1)
[2022-08-19 09:38] LABS: TOT PROT 5.7 g/dl (6.4-8.2)
[2022-08-19] MEDS: VITAMIN B COMP W-C 1 EA TABLET (NEPHRO-VITE) PO SCH (12:33)
[2022-08-19] MEDS: ISOSORBIDE MONONITRATE 60 MG TAB.SR.24H (FP) PO SCH (12:33)
[2022-08-19] MEDS: METOPROLOL TARTRATE 25 MG TABLET (FP) PO SCH ×2 (12:33→21:48)
[2022-08-19] MEDS: FAMOTIDINE 10 MG TABLET PO SCH (12:33)
[2022-08-19] MEDS: amLODIPine BESYLATE 10 MG TABLET (FP) PO SCH (12:33)
[2022-08-19] MEDS: levETIRAcetam 500 MG/5 ML INJECTION VIAL IVPB SCH ×2 (12:34→21:49)
[2022-08-19] MEDS: FUROSEMIDE 40 MG/4 ML INJECTABLE VIAL IVPUSH SCH (12:56)
[2022-08-19] MEDS: ATORVASTATIN CA 80 MG TABLET (FP) PO SCH (21:48)
[2022-08-20] MEDS: hydrALAZINE HCL 20 MG/ML VIAL IVPB PRN (06:40)
[2022-08-20] MEDS: hydrALAZINE HCL 50 MG TABLET (FP) PO SCH ×2 (07:56→14:48)
[2022-08-20] MEDS: ISOSORBIDE MONONITRATE 60 MG TAB.SR.24H (FP) PO SCH (09:00)
[2022-08-20] MEDS: levETIRAcetam 500 MG/5 ML INJECTION VIAL IVPB SCH (09:00)
[2022-08-20] MEDS: VITAMIN B COMP W-C 1 EA TABLET (NEPHRO-VITE) PO SCH (09:00)
[2022-08-20] MEDS: FAMOTIDINE 10 MG TABLET PO SCH (09:01)
[2022-08-20] MEDS: amLODIPine BESYLATE 10 MG TABLET (FP) PO SCH (09:01)
[2022-08-20] MEDS: METOPROLOL TARTRATE 25 MG TABLET (FP) PO SCH (09:01)
[2022-08-20] MEDS: FUROSEMIDE 40 MG/4 ML INJECTABLE VIAL IVPUSH SCH (09:01)
[2022-08-20] MEDS ORDERED: SODIUM CHLORIDE 250 ML IV PRN (14:51)
[2022-08-20 15:32] VITALS: BP 147/76; PULSE 71; TEMP 97.9
[2022-08-21] MEDS ORDERED: EPOETIN ALFA-EPBX 4,000 UNIT/ML VIAL SQ ONE (14:51)
== END 2022-08-20 17:09 | DRG 194 ==
LOC: JER 17:25 → JERBED 20:21 → J4W 08-05 23:58 → J5S 08-14 20:23
PROVIDERS: ADMIT Internal Medicine; ATTEND Internal Medicine
PROC: 05HM33Z Insertion of Infusion Device into Right Internal Jugular Vein, Percutaneous Approach (ICD-10-PCS; 2022-08-13)
PROC: B543ZZA Ultrasonography of Right Jugular Veins, Guidance (ICD-10-PCS; 2022-08-13)
PROC: 0JH63XZ Insertion of Tunneled Vascular Access Device into Chest Subcutaneous Tissue and Fascia, Percutaneous Approach (ICD-10-PCS; principal; 2022-08-13 16:00)
PROC: 5A1D70Z Performance of Urinary Filtration, Intermittent, Less than 6 Hours Per Day (ICD-10-PCS; 2022-08-14)
PROC: 30233N1 Transfusion of Nonautologous Red Blood Cells into Peripheral Vein, Percutaneous Approach (ICD-10-PCS; 2022-08-14)
PROC: 5A1D70Z Performance of Urinary Filtration, Intermittent, Less than 6 Hours Per Day (ICD-10-PCS; 2022-08-16)
PROC: 5A1D70Z Performance of Urinary Filtration, Intermittent, Less than 6 Hours Per Day (ICD-10-PCS; 2022-08-19)
DX: I13.2 Hypertensive heart and chronic kidney disease with heart failure and with stage 5 chronic kidney disease, or end stage renal disease (principal); E11.22 Type 2 diabetes mellitus with diabetic chronic kidney disease; N18.6 End stage renal disease; I50.33 Acute on chronic diastolic (congestive) heart failure; I24.8 Other forms of acute ischemic heart disease; E78.5 Hyperlipidemia, unspecified; G40.909 Epilepsy, unspecified, not intractable, without status epilepticus; N17.9 Acute kidney failure, unspecified; F03.90 Unspecified dementia, unspecified severity, without behavioral disturbance, psychotic disturbance, mood disturbance, and anxiety; R09.02 Hypoxemia; J81.1 Chronic pulmonary edema; E66.9 Obesity, unspecified; Z68.25 Body mass index [BMI] 25.0-25.9, adult; D64.9 Anemia, unspecified; E03.9 Hypothyroidism, unspecified; R53.1 Weakness; E87.70 Fluid overload, unspecified; Z99.2 Dependence on renal dialysis; Z86.73 Personal history of transient ischemic attack (TIA), and cerebral infarction without residual deficits; Z91.14 Patient's other noncompliance with medication regimen
CPT/HCPCS: 0241U-QW; 36415; 36430; 71045-TC-FY; 76000-TC-FY; 80048; 80053; 81003; 82728; 82803; 82962; 83540; 83550; 83605; 83735; 83880; 84100; 84439; 84443; 84484; 85025; 85027; 85610; 85730; 86705; 86803; 86850; 86900; 86901; 86922; 87040; 87086; 87340; 87517; 93005; 93010; 93886; 93986; 94760; 97116-GP; 97161-GP; 99285-25; C1750; J1644; P9058; Q5106

== ENCOUNTER 2022-09-28 11:39 | Inpatient (IN) | payer OTHER ==
[2022-09-28 14:10] LABS: BASO % 1.2 % (0-2.0); EOS % 2.2 % (0-4.5); HEMATOCRIT 39.9 % (32.4-45.2); HEMOGLOBIN 12.6 GM/dL (10.7-15.3); LYMPH % 28.3 % (8-40); MCH 29.2 pg (25.7-33.7); MCHC 31.6 g/dl (32.0-36.0); MEAN CELL VOLUME 92.4 fl (80-96); MEAN PLT VOLUME 8.3 fl (7.5-11.1); MONO % 9.3 % (3.8-10.2); PLATELET COUNT 257 10^3/uL (134-434); RBC 4.31 M/mm3 (3.60-5.2); VENOUS BASE EXCESS 0.8 mmol/L (-2-2); VENOUS O2 SATURATION 83.3 % (70-80); VENOUS PCO2 51.8 mmHg (38-52); VENOUS PH 7.341 (7.310-7.410); WHITE BLOOD COUNT 7.2 K/mm3 (4.0-10.0)
[2022-09-28 14:17] LABS: INR 0.91 (0.83-1.09); PROTHROMBIN TIME (PATIENT) 10.4 SEC (9.7-13.0)
[2022-09-28 14:20] LABS: ACTIVATED PTT 36.7 SECONDS (25.2-36.5)
[2022-09-28 15:01] LABS: CHLORIDE 107 mmol/L (98-107); SODIUM 142 mmol/L (136-145)
[2022-09-28 15:07] LABS: ALK PHOS 86 U/L (45-117); BILIRUBIN,TOTAL 0.3 mg/dL (0.2-1); BLOOD UREA NITROGEN 40.3 mg/dL (7-18); CALCIUM 8.9 mg/dL (8.5-10.1); CO2 27 mmol/L (21-32); CREATININE 7.1 mg/dL (0.55-1.3); GLUCOSE,RANDOM 166 mg/dL (74-106); MAGNESIUM 2.3 mg/dL (1.8-2.4); N-TERMINAL BNP 1174.3 pg/ml (5-125); PHOSPHOROUS 4.2 mg/dL (2.5-4.9); SGOT/AST 16 U/L (15-37); SGPT/ALT 35 U/L (13-61); TOT PROT 6.9 g/dl (6.4-8.2)
[2022-09-28 15:20] LABS: EPI CELLS 19 /uL (0-25.1); HYALINE CASTS 2 /uL (0-3.1); URINE APPEARANCE CLEAR; URINE BACTERIA 9 /uL (0-1359); URINE BILIRUBIN NEGATIVE (NEGATIVE); URINE COLOR YELLOW; URINE GLUCOSE (UA) 2+ (NEGATIVE); URINE KETONE NEGATIVE (NEGATIVE); URINE LEUK ESTERASE NEGATIVE (NEGATIVE); URINE NITRITE NEGATIVE (NEGATIVE); URINE PROTEIN 4+ (NEGATIVE); URINE RBC 13 /uL (0-23.9); URINE UROBILINOGEN 0.2 mg/dL (0.2-1.0); URINE WBC 24 /uL (0-25.8)
[2022-09-29] MEDS ORDERED: SODIUM CHLORIDE NASAL SPRAY 44 ML BOTTLE NS PRN (00:25)
[2022-09-29] MEDS ORDERED: CARVEDILOL 25 MG TABLET (FP) PO ONE (01:22)
[2022-09-29] MEDS: levETIRAcetam 500 MG TABLET (FP) PO SCH ×2 (01:37→11:43)
[2022-09-29] MEDS ORDERED: CARVEDILOL 25 MG TABLET (FP) ONE ×2 (01:41→11:20)
[2022-09-29] MEDS ORDERED: levETIRAcetam 500 MG TABLET (FP) PO ONE ×2 (01:58→11:19)
[2022-09-29] MEDS ORDERED: hydrALAZINE HCL 50 MG TABLET (FP) ONE (05:55)
[2022-09-29] MEDS ORDERED: METOCLOPRAMIDE HCL 10 MG TABLET (FP) PO ONE ×2 (05:55→11:20)
[2022-09-29] MEDS: hydrALAZINE HCL 50 MG TABLET (FP) PO SCH ×2 (06:01→15:41)
[2022-09-29] MEDS: METOCLOPRAMIDE HCL 10 MG TABLET (FP) PO SCH ×3 (06:01→15:40)
[2022-09-29 07:39] LABS: BASO % 0.9 % (0-2.0); EOS % 2.5 % (0-4.5); HEMATOCRIT 41.1 % (32.4-45.2); HEMOGLOBIN 13.1 GM/dL (10.7-15.3); LYMPH % 22.2 % (8-40); MCH 29.5 pg (25.7-33.7); MEAN CELL VOLUME 92.2 fl (80-96); MEAN PLT VOLUME 8.9 fl (7.5-11.1); MONO % 8.5 % (3.8-10.2); NEUT % 65.9 % (42.8-82.8); PLATELET COUNT 260 10^3/uL (134-434); RBC 4.46 M/mm3 (3.60-5.2); RDW 17.5 % (11.6-15.6); WHITE BLOOD COUNT 8.9 K/mm3 (4.0-10.0)
[2022-09-29 07:43] LABS: CHLORIDE 107 mmol/L (98-107); SODIUM 142 mmol/L (136-145)
[2022-09-29 07:46] LABS: ANION GAP 11 MMOL/L (8-16); CALCIUM 9.5 mg/dL (8.5-10.1); CO2 24 mmol/L (21-32); GLUCOSE,RANDOM 122 mg/dL (74-106)
[2022-09-29 07:47] LABS: BLOOD UREA NITROGEN 44.9 mg/dL (7-18)
[2022-09-29 07:50] LABS: SGOT/AST 16 U/L (15-37); SGPT/ALT 29 U/L (13-61)
[2022-09-29 07:51] LABS: BILIRUBIN,TOTAL 0.4 mg/dL (0.2-1); TOT PROT 6.6 g/dl (6.4-8.2)
[2022-09-29 07:52] LABS: ALK PHOS 85 U/L (45-117)
[2022-09-29 08:11] LABS: CREATININE 7.7 mg/dL (0.55-1.3)
[2022-09-29] MEDS ORDERED: cloNIDine-TTS 0.2 MG/24 HOURS PATCH.TDWK TD SCH (10:00)
[2022-09-29] MEDS ORDERED: amLODIPine BESYLATE 10 MG TABLET (FP) ONE (11:19)
[2022-09-29] MEDS ORDERED: ISOSORBIDE MONONITRATE 60 MG TAB.SR.24H (FP) PO ONE (11:20)
[2022-09-29] MEDS: VITAMIN B COMP W-C 1 EA TABLET (NEPHRO-VITE) PO SCH (11:43)
[2022-09-29] MEDS: ISOSORBIDE MONONITRATE 60 MG TAB.SR.24H (FP) PO SCH (11:43)
[2022-09-29] MEDS: CARVEDILOL 25 MG TABLET (FP) PO SCH (11:43)
[2022-09-29] MEDS: amLODIPine BESYLATE 10 MG TABLET (FP) PO SCH (11:44)
[2022-09-30] MEDS ORDERED: levETIRAcetam 500 MG/5 ML INJECTION VIAL IVPB ONE (00:02)
[2022-09-30 00:17] LABS: BASO % 0.9 % (0-2.0); EOS % 2.4 % (0-4.5); HEMATOCRIT 40.3 % (32.4-45.2); HEMOGLOBIN 13.2 GM/dL (10.7-15.3); LYMPH % 28.6 % (8-40); MCH 29.8 pg (25.7-33.7); MCHC 32.6 g/dl (32.0-36.0); MEAN CELL VOLUME 91.5 fl (80-96); MONO % 7.4 % (3.8-10.2); NEUT % 60.7 % (42.8-82.8); PLATELET COUNT 250 10^3/uL (134-434); RBC 4.41 M/mm3 (3.60-5.2); RDW 17.5 % (11.6-15.6); WHITE BLOOD COUNT 6.4 K/mm3 (4.0-10.0)
[2022-09-30] MEDS: levETIRAcetam 500 MG TABLET (FP) PO SCH ×3 (00:20→22:20)
[2022-09-30] MEDS: ATORVASTATIN CA 80 MG TABLET (FP) PO SCH ×2 (00:20→22:20)
[2022-09-30] MEDS: hydrALAZINE HCL 50 MG TABLET (FP) PO SCH ×4 (00:20→22:20)
[2022-09-30] MEDS: CARVEDILOL 25 MG TABLET (FP) PO SCH ×3 (00:20→22:20)
[2022-09-30] MEDS: SERTRALINE HCL 25 MG TABLET (FP) PO SCH ×2 (00:20→22:20)
[2022-09-30 00:32] LABS: CHLORIDE 104 mmol/L (98-107); SODIUM 140 mmol/L (136-145)
[2022-09-30 00:35] LABS: ALBUMIN 2.9 g/dl (3.4-5.0); ANION GAP 10 MMOL/L (8-16); BLOOD UREA NITROGEN 51.3 mg/dL (7-18); CALCIUM 9.1 mg/dL (8.5-10.1); CO2 26 mmol/L (21-32); GLUCOSE,RANDOM 134 mg/dL (74-106)
[2022-09-30 00:38] LABS: SGOT/AST 20 U/L (15-37); SGPT/ALT 27 U/L (13-61)
[2022-09-30 00:40] LABS: BILIRUBIN,TOTAL 0.4 mg/dL (0.2-1); TOT PROT 6.9 g/dl (6.4-8.2)
[2022-09-30 00:41] LABS: ALK PHOS 90 U/L (45-117)
[2022-09-30 00:43] LABS: CREATININE 8.4 mg/dL (0.55-1.3)
[2022-09-30 04:05] LABS: ARTERIAL BLD GAS O2 SATURATION 99.4 % (95-98); ARTERIAL BLOOD GAS BASE EXCESS -3.1 mmol/L (-2-2); ARTERIAL BLOOD GAS PO2 217.2 mmHg (80-100); ARTERIAL BLOOD GAS pH 7.305 (7.350-7.450)
[2022-09-30 04:09] LABS: ALLENS TEST POSITIVE
[2022-09-30] MEDS: METOCLOPRAMIDE HCL 10 MG TABLET (FP) PO SCH ×3 (06:41→16:37)
[2022-09-30] MEDS ORDERED: SODIUM CHLORIDE 250 ML IV PRN (09:42)
[2022-09-30] MEDS: VITAMIN B COMP W-C 1 EA TABLET (NEPHRO-VITE) PO SCH (10:20)
[2022-09-30 12:16] VITALS: BMI 24.5
[2022-09-30] MEDS: ISOSORBIDE MONONITRATE 60 MG TAB.SR.24H (FP) PO SCH (15:00)
[2022-09-30] MEDS: amLODIPine BESYLATE 10 MG TABLET (FP) PO SCH (15:01)
[2022-10-01] MEDS: hydrALAZINE HCL 50 MG TABLET (FP) PO SCH ×3 (06:43→22:26)
[2022-10-01] MEDS: METOCLOPRAMIDE HCL 10 MG TABLET (FP) PO SCH ×3 (06:44→18:01)
[2022-10-01 09:13] LABS: ARTERIAL BLD GAS O2 SATURATION 94.9 % (95-98); ARTERIAL BLOOD GAS BASE EXCESS 3.7 mmol/L (-2-2); ARTERIAL BLOOD GAS PO2 74.1 mmHg (80-100)
[2022-10-01 09:17] LABS: ALLENS TEST POSITIVE
[2022-10-01] MEDS: levETIRAcetam 500 MG TABLET (FP) PO SCH ×2 (11:00→22:26)
[2022-10-01] MEDS: VITAMIN B COMP W-C 1 EA TABLET (NEPHRO-VITE) PO SCH (11:00)
[2022-10-01] MEDS: amLODIPine BESYLATE 10 MG TABLET (FP) PO SCH (11:00)
[2022-10-01] MEDS: ISOSORBIDE MONONITRATE 60 MG TAB.SR.24H (FP) PO SCH (11:00)
[2022-10-01] MEDS: CARVEDILOL 25 MG TABLET (FP) PO SCH ×2 (11:01→22:27)
[2022-10-01] MEDS: SERTRALINE HCL 25 MG TABLET (FP) PO SCH (22:27)
[2022-10-01] MEDS: ATORVASTATIN CA 80 MG TABLET (FP) PO SCH (22:37)
[2022-10-02] MEDS ORDERED: SODIUM CHLORIDE 250 ML IV PRN (05:42)
[2022-10-02] MEDS: hydrALAZINE HCL 50 MG TABLET (FP) PO SCH ×2 (06:25→13:26)
[2022-10-02] MEDS: METOCLOPRAMIDE HCL 10 MG TABLET (FP) PO SCH ×2 (06:26→10:15)
[2022-10-02 07:05] LABS: HEMATOCRIT 37.7 % (32.4-45.2); HEMOGLOBIN 12.5 GM/dL (10.7-15.3); MCHC 33.1 g/dl (32.0-36.0); MEAN CELL VOLUME 90.6 fl (80-96); MEAN PLT VOLUME 7.9 fl (7.5-11.1); PLATELET COUNT 242 10^3/uL (134-434); RBC 4.16 M/mm3 (3.60-5.2); RDW 17.4 % (11.6-15.6); WHITE BLOOD COUNT 4.9 K/mm3 (4.0-10.0)
[2022-10-02 08:19] LABS: ALBUMIN 2.6 g/dl (3.4-5.0); CALCIUM 8.6 mg/dL (8.5-10.1)
[2022-10-02 08:20] LABS: BLOOD UREA NITROGEN 34.4 mg/dL (7-18)
[2022-10-02 08:23] LABS: CREATININE 6.8 mg/dL (0.55-1.3)
[2022-10-02 08:24] LABS: BILIRUBIN,TOTAL 0.4 mg/dL (0.2-1); TOT PROT 5.9 g/dl (6.4-8.2)
[2022-10-02] MEDS ORDERED: cloNIDine-TTS 0.2 MG/24 HOURS PATCH.TDWK TD SCH (10:00)
[2022-10-02] MEDS: CARVEDILOL 25 MG TABLET (FP) PO SCH (10:08)
[2022-10-02] MEDS: ISOSORBIDE MONONITRATE 60 MG TAB.SR.24H (FP) PO SCH (10:09)
[2022-10-02] MEDS: amLODIPine BESYLATE 10 MG TABLET (FP) PO SCH (10:15)
[2022-10-02 12:04] VITALS: RESP 18
[2022-10-02] MEDS: VITAMIN B COMP W-C 1 EA TABLET (NEPHRO-VITE) PO SCH (13:27)
[2022-10-02] MEDS: levETIRAcetam 500 MG TABLET (FP) PO SCH (13:27)
[2022-10-02 17:42] VITALS: BP 174/77; PULSE 77; TEMP 98.6
== END 2022-10-02 14:55 | DRG 52 ==
LOC: JER 11:39 → JERBED 17:04 → J7W 09-29 12:40
PROVIDERS: ADMIT Internal Medicine; ATTEND Internal Medicine
PROC: 5A1D70Z Performance of Urinary Filtration, Intermittent, Less than 6 Hours Per Day (ICD-10-PCS; principal; 2022-10-02)
DX: G93.41 Metabolic encephalopathy (principal); N18.6 End stage renal disease; F01.50 Vascular dementia, unspecified severity, without behavioral disturbance, psychotic disturbance, mood disturbance, and anxiety; I12.0 Hypertensive chronic kidney disease with stage 5 chronic kidney disease or end stage renal disease; E78.5 Hyperlipidemia, unspecified; Z99.2 Dependence on renal dialysis
CPT/HCPCS: 0241U-QW; 36415; 36600; 70450-TC; 71045-TC-FY; 80053; 80177; 81003; 82803; 82962; 83605; 83735; 83880; 84100; 84484; 85025; 85027; 85610; 85730; 86803; 87086; 87340; 93005; 93010; 97116-GP; 97162-GP; 99285-25

== ENCOUNTER 2024-02-23 14:41 | Inpatient (IN) | payer OTHER ==
[2024-02-23 15:25] LABS: BASO % 0.8 % (0-2.0); EOS % 3.2 % (0-4.5); HEMOGLOBIN 12.1 GM/dL (10.7-15.3); LYMPH % 13.1 % (8-40); MCH 29.9 pg (25.7-33.7); MCHC 32.8 g/dl (32.0-36.0); MEAN CELL VOLUME 91.1 fl (80-96); MEAN PLT VOLUME 8.7 fl (7.5-11.1); MONO % 3.9 % (3.8-10.2); PLATELET COUNT 212 10^3/uL (134-434); RBC 4.07 M/mm3 (3.60-5.2); RDW 17.5 % (11.6-15.6); WHITE BLOOD COUNT 7.4 K/mm3 (4.0-10.0)
[2024-02-23] MEDS ORDERED: ONDANSETRON 4 MG/2 ML VIAL ONE (15:26)
[2024-02-23] MEDS ORDERED: amLODIPine BESYLATE 10 MG TABLET (FP) ONE (15:26)
[2024-02-23] MEDS ORDERED: PANTOPRAZOLE SODIUM 40 MG VIAL ONE (15:26)
[2024-02-23 15:31] LABS: PROTHROMBIN TIME (PATIENT) 11.6 SEC (9.7-13.0)
[2024-02-23] MEDS: ONDANSETRON 4 MG/2 ML VIAL IVPUSH ONE (15:32)
[2024-02-23] MEDS: PANTOPRAZOLE SODIUM 40 MG VIAL IVPUSH ONE (15:32)
[2024-02-23 15:44] LABS: POTASSIUM 4.6 mmol/L (3.5-5.1)
[2024-02-23 15:46] LABS: ALBUMIN 3.6 g/dl (3.4-5.0); BLOOD UREA NITROGEN 28.1 mg/dL (7-18); CALCIUM 9.1 mg/dL (8.5-10.1)
[2024-02-23 15:49] LABS: CREATININE 5.5 mg/dL (0.55-1.3)
[2024-02-23] MEDS: amLODIPine BESYLATE 10 MG TABLET (FP) PO ONE (15:50)
[2024-02-23 15:51] LABS: BILIRUBIN,TOTAL 0.5 mg/dL (0.2-1); TOT PROT 8.1 g/dl (6.4-8.2)
[2024-02-23] MEDS ORDERED: ACETAMINOPHEN INJECTION 100 ML IVPB ONE (15:51)
[2024-02-23] MEDS ORDERED: FAMOTIDINE 20 MG/50 ML IVPB 20 MG/50 ML MG IVPB ONE (15:51)
[2024-02-23] MEDS: FAMOTIDINE 20 MG/50 ML IVPB 20 MG/50 ML MG IVPB ONE (15:55)
[2024-02-23] MEDS: ACETAMINOPHEN 1000 MG/100 ML BAG IVPB ONE (15:55)
[2024-02-23] MEDS ORDERED: CARVEDILOL 25 MG TABLET (FP) ONE (16:56)
[2024-02-23] MEDS ORDERED: hydrALAZINE HCL 50 MG TABLET (FP) ONE (16:56)
[2024-02-23] MEDS: hydrALAZINE HCL 50 MG TABLET (FP) PO ONE (16:57)
[2024-02-23] MEDS: CARVEDILOL 25 MG TABLET (FP) PO ONE (16:57)
[2024-02-23] MEDS ORDERED: LABETALOL HCL 5 MG/1 ML (100MG/20 ML VIAL) ONE (20:54)
[2024-02-23] MEDS ORDERED: FUROSEMIDE 40 MG/4 ML INJECTABLE VIAL ONE (20:55)
[2024-02-23] MEDS: LABETALOL HCL 5 MG/1 ML (100MG/20 ML VIAL) IVPUSH ONE ×3 (21:05→23:09)
[2024-02-23] MEDS: FUROSEMIDE 40 MG/4 ML INJECTABLE VIAL IVPUSH ONE (21:05)
[2024-02-23] MEDS ORDERED: LABETALOL HCL 20 MG/4 ML VIAL ONE (21:49)
[2024-02-23] MEDS: NICARDIPINE 25 MG in DEXTROSE 5%-WATER - 240 ML IVPB SCH (23:52)
[2024-02-24 00:04] LABS: EPI CELLS 2 /uL (0-25.1); HYALINE CASTS 2 /uL (0-3.1); URINE APPEARANCE CLOUDY; URINE BACTERIA >9,000 /uL (0-1359); URINE BILIRUBIN NEGATIVE (NEGATIVE); URINE COLOR YELLOW; URINE GLUCOSE (UA) 1+ (NEGATIVE); URINE KETONE NEGATIVE (NEGATIVE); URINE LEUK ESTERASE TRACE (NEGATIVE); URINE NITRITE NEGATIVE (NEGATIVE); URINE PROTEIN 4+ (NEGATIVE); URINE RBC 85 /uL (0-23.9); URINE UROBILINOGEN 0.2 mg/dL (0.2-1.0); URINE WBC 771 /uL (0-25.8)
[2024-02-24 01:30] VITALS: BMI 20.6
[2024-02-24] MEDS: PANTOPRAZOLE SODIUM 40 MG VIAL IVPUSH SCH (09:12)
[2024-02-24] MEDS: CARVEDILOL 25 MG TABLET (FP) PO SCH (09:12)
[2024-02-24] MEDS: CEFTRIAXONE 1 GM in DEXTROSE 5%-WATER - 50 ML IVPB SCH (09:12)
[2024-02-24] MEDS: NIFEdipine E.R 60 MG TABLET PO SCH (09:12)
[2024-02-24] MEDS: levETIRAcetam 500 MG TABLET (FP) PO SCH (09:12)
[2024-02-24] MEDS: SERTRALINE HCL 25 MG TABLET (FP) PO SCH (09:12)
[2024-02-24] MEDS ORDERED: amLODIPine BESYLATE 10 MG TABLET (FP) PO SCH (10:00)
[2024-02-24] MEDS: ISOSORBIDE MONONITRATE 60 MG TAB.SR.24H (FP) PO SCH (10:57)
[2024-02-24] MEDS ORDERED: LORazepam 2 MG/ML SDV VIAL IVPUSH ONE (11:00)
[2024-02-24] MEDS ORDERED: levETIRAcetam 500 MG/5 ML INJECTION VIAL IVPB SCH (11:00)
[2024-02-24] MEDS: levETIRAcetam 500 MG/5 ML INJECTION VIAL IVPB ONE (11:07)
[2024-02-24] MEDS: LORazepam 2 MG/ML SDV VIAL IVPUSH ONE (11:14)
[2024-02-24] MEDS ORDERED: SODIUM CHLORIDE 250 ML IV PRN (14:41)
[2024-02-24 14:42] LABS: BASO % 0.7 % (0-2.0); EOS % 0.1 % (0-4.5); HEMOGLOBIN 12.7 GM/dL (10.7-15.3); LYMPH % 17.8 % (8-40); MCH 29.4 pg (25.7-33.7); MCHC 31.8 g/dl (32.0-36.0); MEAN CELL VOLUME 92.5 fl (80-96); MEAN PLT VOLUME 8.6 fl (7.5-11.1); MONO % 5.8 % (3.8-10.2); NEUT % 75.6 % (42.8-82.8); PLATELET COUNT 215 10^3/uL (134-434); RBC 4.33 M/mm3 (3.60-5.2); RDW 17.4 % (11.6-15.6); WHITE BLOOD COUNT 9.6 K/mm3 (4.0-10.0)
[2024-02-24] MEDS: levETIRAcetam 500 MG/5 ML INJECTION VIAL IVPB SCH (21:37)
[2024-02-24] MEDS: ATORVASTATIN CA 80 MG TABLET (FP) PO SCH (23:30)
[2024-02-25 07:39] LABS: BASO % 0.6 % (0-2.0); EOS % 0.4 % (0-4.5); HEMATOCRIT 42.1 % (32.4-45.2); HEMOGLOBIN 13.6 GM/dL (10.7-15.3); LYMPH % 10.5 % (8-40); MCH 29.7 pg (25.7-33.7); MCHC 32.2 g/dl (32.0-36.0); MEAN CELL VOLUME 92.2 fl (80-96); MEAN PLT VOLUME 8.8 fl (7.5-11.1); MONO % 4.9 % (3.8-10.2); NEUT % 83.6 % (42.8-82.8); PLATELET COUNT 229 10^3/uL (134-434); RBC 4.57 M/mm3 (3.60-5.2); RDW 17.5 % (11.6-15.6); WHITE BLOOD COUNT 11.9 K/mm3 (4.0-10.0)
[2024-02-25 07:51] LABS: CHLORIDE 100 mmol/L (98-107); POTASSIUM 5.3 mmol/L (3.5-5.1); SODIUM 136 mmol/L (136-145)
[2024-02-25 07:57] LABS: ALBUMIN 3.4 g/dl (3.4-5.0); ANION GAP 10 mmol/L (4-13); CALCIUM 9.1 mg/dL (8.5-10.1); CO2 26 mmol/L (21-32); GLUCOSE,RANDOM 198 mg/dL (74-106); MAGNESIUM 2.4 mg/dL (1.8-2.4)
[2024-02-25 08:00] LABS: PHOSPHOROUS 5.6 mg/dL (2.5-4.9); SGOT/AST 12 U/L (15-37); SGPT/ALT 26 U/L (13-61)
[2024-02-25 08:02] LABS: ALK PHOS 93 U/L (45-117); BILIRUBIN,TOTAL 0.6 mg/dL (0.2-1)
[2024-02-25 08:12] LABS: CREATININE 8.3 mg/dL (0.55-1.3)
[2024-02-25] MEDS ORDERED: niCARdipine HCL 25 MG/10 ML AMPUL IVPB ONE (08:33)
[2024-02-25] MEDS: PANTOPRAZOLE SODIUM 40 MG VIAL IVPUSH SCH (12:16)
[2024-02-25] MEDS: cloNIDine-TTS 0.2 MG/24 HOURS PATCH.TDWK TD SCH (12:16)
[2024-02-25] MEDS: levETIRAcetam 500 MG/5 ML INJECTION VIAL IVPB SCH ×2 (12:17→22:03)
[2024-02-25] MEDS: CARVEDILOL 25 MG TABLET (FP) PO SCH ×2 (12:17→22:02)
[2024-02-25] MEDS: hydrALAZINE HCL 50 MG TABLET (FP) PO SCH ×2 (12:40→22:02)
[2024-02-25] MEDS ORDERED: SODIUM CHLORIDE 250 ML IV PRN (17:24)
[2024-02-25] MEDS ORDERED: levETIRAcetam 500 MG TABLET (FP) PO SCH (22:00)
[2024-02-25] MEDS ORDERED: ATORVASTATIN CA 80 MG TABLET (FP) PO SCH (22:00)
[2024-02-25] MEDS: NIFEdipine E.R 60 MG TABLET PO SCH (22:02)
[2024-02-25] MEDS: ATORVASTATIN CA 80 MG TABLET (FP) PO SCH (22:03)
[2024-02-26 09:29] LABS: BASO % 0.9 % (0-2.0); EOS % 5.3 % (0-4.5); HEMATOCRIT 38.1 % (32.4-45.2); HEMOGLOBIN 12.3 GM/dL (10.7-15.3); LYMPH % 19.3 % (8-40); MCH 29.8 pg (25.7-33.7); MCHC 32.4 g/dl (32.0-36.0); MEAN CELL VOLUME 92.1 fl (80-96); MONO % 8.8 % (3.8-10.2); NEUT % 65.7 % (42.8-82.8); PLATELET COUNT 193 10^3/uL (134-434); RBC 4.14 M/mm3 (3.60-5.2); RDW 17.2 % (11.6-15.6)
[2024-02-26] MEDS: ISOSORBIDE MONONITRATE 60 MG TAB.SR.24H (FP) PO SCH (10:51)
[2024-02-26] MEDS: SERTRALINE HCL 25 MG TABLET (FP) PO SCH (10:51)
[2024-02-26] MEDS: PANTOPRAZOLE SODIUM 40 MG VIAL IVPUSH SCH (10:52)
[2024-02-26] MEDS: CEFTRIAXONE 1 GM in DEXTROSE 5%-WATER - 50 ML IVPB SCH (10:52)
[2024-02-26] MEDS ORDERED: SODIUM CHLORIDE 250 ML IV PRN (15:36)
[2024-02-27 10:00] LABS: HEMATOCRIT 32.5 % (32.4-45.2); HEMOGLOBIN 10.7 GM/dL (10.7-15.3); MCH 30.2 pg (25.7-33.7); MEAN CELL VOLUME 91.5 fl (80-96); MEAN PLT VOLUME 8.5 fl (7.5-11.1); PLATELET COUNT 181 10^3/uL (134-434); RBC 3.55 M/mm3 (3.60-5.2); WHITE BLOOD COUNT 8.4 K/mm3 (4.0-10.0)
[2024-02-27 10:10] LABS: CHLORIDE 100 mmol/L (98-107); POTASSIUM 4.2 mmol/L (3.5-5.1); SODIUM 137 mmol/L (136-145)
[2024-02-27 10:15] LABS: ANION GAP 6 mmol/L (4-13); BLOOD UREA NITROGEN 53.6 mg/dL (7-18); CALCIUM 8.4 mg/dL (8.5-10.1); CO2 30 mmol/L (21-32); GLUCOSE,RANDOM 122 mg/dL (74-106)
[2024-02-27 10:16] LABS: CREATININE 8.7 mg/dL (0.55-1.3)
[2024-02-27 12:21] VITALS: TEMP 98.3
[2024-02-27] MEDS: CEPHALEXIN MONOHYDRATE 500 MG CAPSULE (UD) PO SCH (12:28)
[2024-02-27 15:42] VITALS: BP 107/59; PULSE 79; RESP 18
[2024-03-03] MEDS ORDERED: cloNIDine-TTS 0.2 MG/24 HOURS PATCH.TDWK TD SCH (10:00)
== END 2024-02-27 16:45 | DRG 199 ==
LOC: JER 14:41 → JERBED 19:16 → JICU 02-24 00:44 → J4W 02-25 16:46
PROVIDERS: ADMIT Internal Medicine Pulmonary Disease; ATTEND Internal Medicine
PROC: 5A1D70Z Performance of Urinary Filtration, Intermittent, Less than 6 Hours Per Day (ICD-10-PCS; principal; 2024-02-25)
PROC: 5A1D70Z Performance of Urinary Filtration, Intermittent, Less than 6 Hours Per Day (ICD-10-PCS; 2024-02-27)
DX: I16.0 Hypertensive urgency (principal); K92.0 Hematemesis; E11.22 Type 2 diabetes mellitus with diabetic chronic kidney disease; E87.5 Hyperkalemia; N18.6 End stage renal disease; E78.5 Hyperlipidemia, unspecified; G40.909 Epilepsy, unspecified, not intractable, without status epilepticus; E03.9 Hypothyroidism, unspecified; R10.13 Epigastric pain; I12.0 Hypertensive chronic kidney disease with stage 5 chronic kidney disease or end stage renal disease; F01.50 Vascular dementia, unspecified severity, without behavioral disturbance, psychotic disturbance, mood disturbance, and anxiety; Z99.2 Dependence on renal dialysis; D35.2 Benign neoplasm of pituitary gland; D64.9 Anemia, unspecified; N39.0 Urinary tract infection, site not specified; B96.1 Klebsiella pneumoniae [K. pneumoniae] as the cause of diseases classified elsewhere; G82.20 Paraplegia, unspecified
CPT/HCPCS: 0241U-QW; 36415; 70450-TC; 71045-TC-FY; 71250-TC; 74176-TC; 80048; 80053; 81003; 82272; 82962; 83735; 83880; 84100; 84484; 85025; 85027; 85610; 85730; 86803; 86850; 86900; 86901; 87086; 87186; 87340; 93005; 93010; 99285-25; J0131

== ENCOUNTER 2024-08-11 17:48 | Inpatient (IN) | payer OTHER ==
[2024-08-11] MEDS ORDERED: levETIRAcetam 500 MG/5 ML INJECTION VIAL IVPB ONE ×2 (18:19→19:23)
[2024-08-11] MEDS ORDERED: LABETALOL HCL 5 MG/1 ML (100MG/20 ML VIAL) ONE (19:23)
[2024-08-11] MEDS: levETIRAcetam 500 MG/5 ML INJECTION VIAL IVPB ONE (20:06)
[2024-08-11] MEDS: LABETALOL HCL 5 MG/1 ML (100MG/20 ML VIAL) IVPUSH ONE ×2 (20:06→23:55)
[2024-08-11] MEDS: hydrALAZINE HCL 20 MG/ML VIAL IVPUSH ONE (20:07)
[2024-08-11 20:11] LABS: HEMATOCRIT 39.4 % (32.4-45.2); HEMOGLOBIN 12.7 GM/dL (10.7-15.3); MCH 29.5 pg (25.7-33.7); MCHC 32.3 g/dl (32.0-36.0); MEAN CELL VOLUME 91.4 fl (80-96); PLATELET COUNT 273 10^3/uL (134-434); RBC 4.31 M/mm3 (3.60-5.2); WHITE BLOOD COUNT 11.1 K/mm3 (4.0-10.0)
[2024-08-11 20:34] LABS: CHLORIDE 96 mmol/L (98-107); SODIUM 130 mmol/L (136-145)
[2024-08-11 20:36] LABS: ALBUMIN 3.8 g/dl (3.4-5.0); CALCIUM 10.1 mg/dL (8.5-10.1); POTASSIUM 7.6 mmol/L (3.5-5.1)
[2024-08-11 20:37] LABS: ANION GAP 11 mmol/L (4-13); BLOOD UREA NITROGEN 34.1 mg/dL (7-18); CO2 23 mmol/L (21-32); GLUCOSE,RANDOM 308 mg/dL (74-106)
[2024-08-11 20:40] LABS: CREATININE 5.7 mg/dL (0.55-1.3); SGOT/AST 58 U/L (15-37)
[2024-08-11 20:41] LABS: BILIRUBIN,TOTAL 0.4 mg/dL (0.2-1); TOT PROT 9.8 g/dl (6.4-8.2)
[2024-08-11 20:42] LABS: ALK PHOS 103 U/L (45-117)
[2024-08-11 20:52] LABS: ANISOCYTOSIS 0; HELMET CELLS 0; HOWELL-JOLLY BODIES 0; MACROCYTOSIS 0; OVALOCYTE 0; ROULEAU 0; SICKELED CELLS 0; TARGET CELLS 0; TEAR DROP CELLS 0; TOXIC GRANULATION 0
[2024-08-11 21:47] LABS: LACTIC ACID 4.7 mmol/L (0.4-2.0); SGPT/ALT 41 U/L (13-61)
[2024-08-11 23:14] LABS: VENOUS BASE EXCESS -0.6 mmol/L (-2-2); VENOUS O2 SATURATION 88.4 % (70-80); VENOUS PH 7.351 (7.310-7.410)
[2024-08-11 23:53] LABS: EPI CELLS 7 /uL (0-25.1); HYALINE CASTS 5 /uL (0-3.1); PH,URINE 7.5 (5.0-8.0); URINE APPEARANCE CLOUDY; URINE BACTERIA >9,000 /uL (0-1359); URINE BILIRUBIN NEGATIVE (NEGATIVE); URINE COLOR YELLOW; URINE GLUCOSE (UA) 2+ (NEGATIVE); URINE KETONE TRACE (NEGATIVE); URINE LEUK ESTERASE 2+ (NEGATIVE); URINE NITRITE NEGATIVE (NEGATIVE); URINE PROTEIN 4+ (NEGATIVE); URINE RBC 108 /uL (0-23.9); URINE UROBILINOGEN 0.2 mg/dL (0.2-1.0); URINE WBC 817 /uL (0-25.8)
[2024-08-11 23:54] LABS: CALCIUM 9.9 mg/dL (8.5-10.1)
[2024-08-11 23:55] LABS: MAGNESIUM 2.5 mg/dL (1.8-2.4)
[2024-08-11 23:58] LABS: PHOSPHOROUS 4.1 mg/dL (2.5-4.9)
[2024-08-11 23:59] LABS: POTASSIUM 4.9 mmol/L (3.5-5.1)
[2024-08-12 00:03] LABS: LACTIC ACID 4.5 mmol/L (0.4-2.0)
[2024-08-12 00:14] LABS: BLOOD UREA NITROGEN 34.6 mg/dL (7-18)
[2024-08-12 00:26] VITALS: BMI 19.3
[2024-08-12] MEDS ORDERED: hydrALAZINE HCL 20 MG/ML VIAL IVPUSH PRN (02:09)
[2024-08-12] MEDS ORDERED: LABETALOL HCL 5 MG/1 ML (100MG/20 ML VIAL) IVPUSH PRN (02:31)
[2024-08-12] MEDS: hydrALAZINE HCL 20 MG/ML VIAL IVPUSH SCH ×3 (04:06→16:28)
[2024-08-12] MEDS: CEFTRIAXONE 1 GM in DEXTROSE 5%-WATER - 50 ML IVPB SCH (04:13)
[2024-08-12] MEDS ORDERED: PATIENT'S OWN MEDICATION (NON-FORMULARY) (Hydralazine Hcl [Hydralazine Hcl] 100 MG Tablet) PO SCH (06:00)
[2024-08-12] MEDS: INSULIN ASPART SLIDING SCALE (NOVOLOG) 1 VIAL SQ SCH (06:24)
[2024-08-12] MEDS: levETIRAcetam 500 MG/5 ML INJECTION VIAL IVPB SCH (06:40)
[2024-08-12] MEDS ORDERED: levETIRAcetam 500 MG/5 ML INJECTION VIAL IVPB SCH ×3 (07:00→10:00)
[2024-08-12 08:22] LABS: HEMATOCRIT 40.5 % (32.4-45.2); HEMOGLOBIN 12.9 GM/dL (10.7-15.3); MCH 29.5 pg (25.7-33.7); MCHC 31.9 g/dl (32.0-36.0); MEAN CELL VOLUME 92.5 fl (80-96); MEAN PLT VOLUME 9.1 fl (7.5-11.1); PLATELET COUNT 249 10^3/uL (134-434); RBC 4.38 M/mm3 (3.60-5.2); RDW 14.9 % (11.6-15.6); WHITE BLOOD COUNT 10.8 K/mm3 (4.0-10.0)
[2024-08-12 08:29] LABS: POTASSIUM 4.7 mmol/L (3.5-5.1)
[2024-08-12 08:35] LABS: ALBUMIN 3.8 g/dl (3.4-5.0)
[2024-08-12 08:38] LABS: CREATININE 6.4 mg/dL (0.55-1.3); TOT PROT 8.8 g/dl (6.4-8.2)
[2024-08-12 08:39] LABS: BILIRUBIN,TOTAL 0.4 mg/dL (0.2-1)
[2024-08-12 08:43] LABS: LACTIC ACID 2.4 mmol/L (0.4-2.0)
[2024-08-12] MEDS: cloNIDine-TTS 0.2 MG/24 HOURS PATCH.TDWK TD SCH (09:55)
[2024-08-12] MEDS: SODIUM ZIRCONIUM CYCLOSILICATE (LOKELMA) 10 GM PACKET PO SCH (09:56)
[2024-08-12] MEDS ORDERED: levETIRAcetam 500 MG TABLET (FP) PO SCH (10:00)
[2024-08-12] MEDS ORDERED: NIFEdipine E.R 60 MG TABLET PO SCH (10:00)
[2024-08-12] MEDS ORDERED: PATIENT'S OWN MEDICATION (NON-FORMULARY) (Isosorbide Mononitrate [Isosorbide Mononitrate E PO SCH (10:00)
[2024-08-12] MEDS ORDERED: SERTRALINE HCL 25 MG TABLET (FP) PO SCH (10:00)
[2024-08-12] MEDS ORDERED: CARVEDILOL 25 MG TABLET (FP) PO SCH (10:00)
[2024-08-12] MEDS ORDERED: SODIUM CHLORIDE 250 ML IV PRN ×2 (14:19→16:02)
[2024-08-12] MEDS ORDERED: HEPARIN NA (PORCINE) 5,000 UNITS/ML 1ML VIAL IVPUSH ONE (16:15)
[2024-08-12] MEDS ORDERED: INSULIN ASPART SLIDING SCALE (NOVOLOG) 1 VIAL SQ ONE (16:45)
[2024-08-12] MEDS ORDERED: FAMOTIDINE 20 MG TABLET PO SCH (22:00)
[2024-08-12] MEDS ORDERED: ATORVASTATIN CA 80 MG TABLET (FP) PO SCH (22:00)
[2024-08-13] MEDS: HEPARIN NA (PORCINE) 5,000 UNITS/ML 1ML VIAL IVPUSH ONE (15:25)
[2024-08-13] MEDS: ONDANSETRON 4 MG/2 ML VIAL IVPUSH ONE (15:29)
[2024-08-13 17:01] LABS: HEMATOCRIT 33.7 % (32.4-45.2); HEMOGLOBIN 11.1 GM/dL (10.7-15.3); MCH 29.9 pg (25.7-33.7); MCHC 32.9 g/dl (32.0-36.0); PLATELET COUNT 255 10^3/uL (134-434); RDW 15.6 % (11.6-15.6); WHITE BLOOD COUNT 10.3 K/mm3 (4.0-10.0)
[2024-08-13 17:22] LABS: CHLORIDE 102 mmol/L (98-107); POTASSIUM 4.3 mmol/L (3.5-5.1); SODIUM 138 mmol/L (136-145)
[2024-08-13 17:25] LABS: CALCIUM 9.7 mg/dL (8.5-10.1)
[2024-08-13 17:26] LABS: ANION GAP 14 mmol/L (4-13); BLOOD UREA NITROGEN 64.7 mg/dL (7-18); CO2 22 mmol/L (21-32); GLUCOSE,RANDOM 113 mg/dL (74-106)
[2024-08-13] MEDS ORDERED: SODIUM CHLORIDE 250 ML IV PRN (17:42)
[2024-08-13 18:11] LABS: CREATININE 8.8 mg/dL (0.55-1.3)
[2024-08-14] MEDS: LABETALOL HCL 20 MG/4 ML VIAL IVPUSH ONE (11:12)
[2024-08-14] MEDS: ONDANSETRON 4 MG/2 ML VIAL IVPB PRN (11:29)
[2024-08-14] MEDS ORDERED: INSULIN ASPART SLIDING SCALE (NOVOLOG) 1 VIAL SQ ONE (11:39)
[2024-08-14 13:08] LABS: HEMATOCRIT 39.1 % (32.4-45.2); HEMOGLOBIN 12.7 GM/dL (10.7-15.3); MCH 29.8 pg (25.7-33.7); MCHC 32.4 g/dl (32.0-36.0); MEAN CELL VOLUME 91.9 fl (80-96); MEAN PLT VOLUME 9.1 fl (7.5-11.1); PLATELET COUNT 268 10^3/uL (134-434); RBC 4.26 M/mm3 (3.60-5.2); RDW 15.4 % (11.6-15.6); WHITE BLOOD COUNT 7.2 K/mm3 (4.0-10.0)
[2024-08-14] MEDS: hydrALAZINE HCL 20 MG/ML VIAL IVPUSH PRN (13:37)
[2024-08-14 14:00] LABS: POTASSIUM 4.3 mmol/L (3.5-5.1)
[2024-08-14 14:04] LABS: CALCIUM 9.9 mg/dL (8.5-10.1)
[2024-08-14 14:06] LABS: BLOOD UREA NITROGEN 38.2 mg/dL (7-18)
[2024-08-14 14:09] LABS: CREATININE 6.8 mg/dL (0.55-1.3)
[2024-08-14 14:10] LABS: BILIRUBIN,TOTAL 0.6 mg/dL (0.2-1); TOT PROT 8.9 g/dl (6.4-8.2)
[2024-08-15 08:16] LABS: BASO % 0.7 % (0-2.0); EOS % 2.5 % (0-4.5); HEMATOCRIT 33.3 % (32.4-45.2); HEMOGLOBIN 10.9 GM/dL (10.7-15.3); LYMPH % 26.6 % (8-40); MCH 30.2 pg (25.7-33.7); MCHC 32.7 g/dl (32.0-36.0); MEAN CELL VOLUME 92.2 fl (80-96); MEAN PLT VOLUME 8.4 fl (7.5-11.1); MONO % 10.9 % (3.8-10.2); NEUT % 59.3 % (42.8-82.8); PLATELET COUNT 243 10^3/uL (134-434); RBC 3.61 M/mm3 (3.60-5.2); RDW 15.4 % (11.6-15.6); WHITE BLOOD COUNT 8.9 K/mm3 (4.0-10.0)
[2024-08-15 08:25] LABS: CHLORIDE 102 mmol/L (98-107); POTASSIUM 4.5 mmol/L (3.5-5.1); SODIUM 142 mmol/L (136-145)
[2024-08-15 08:34] LABS: CALCIUM 9.3 mg/dL (8.5-10.1)
[2024-08-15 08:35] LABS: ALBUMIN 3.5 g/dl (3.4-5.0); ANION GAP 15 mmol/L (4-13); BLOOD UREA NITROGEN 61.4 mg/dL (7-18); CO2 25 mmol/L (21-32); GLUCOSE,RANDOM 125 mg/dL (74-106); MAGNESIUM 2.6 mg/dL (1.8-2.4)
[2024-08-15 08:38] LABS: PHOSPHOROUS 5.9 mg/dL (2.5-4.9); SGOT/AST 8 U/L (15-37); SGPT/ALT 19 U/L (13-61)
[2024-08-15 08:39] LABS: BILIRUBIN,TOTAL 0.8 mg/dL (0.2-1)
[2024-08-15 08:40] LABS: TOT PROT 7.4 g/dl (6.4-8.2)
[2024-08-15 08:41] LABS: ALK PHOS 76 U/L (45-117)
[2024-08-15 08:44] LABS: CREATININE 8.7 mg/dL (0.55-1.3)
[2024-08-15] MEDS ORDERED: CARVEDILOL 25 MG TABLET (FP) PO SCH ×2 (13:12→22:00)
[2024-08-15] MEDS ORDERED: NIFEdipine 10 MG CAPSULE (FP) PO SCH (13:15)
[2024-08-15] MEDS: hydrALAZINE HCL 50 MG TABLET (FP) PO SCH (16:10)
[2024-08-15] MEDS: NIFEdipine E.R 60 MG TABLET PO SCH (16:10)
[2024-08-15] MEDS: ISOSORBIDE MONONITRATE 60 MG TAB.SR.24H (FP) PO SCH (16:10)
[2024-08-15] MEDS: CARVEDILOL 25 MG TABLET (FP) PO SCH (21:37)
[2024-08-15] MEDS: levETIRAcetam 500 MG TABLET (FP) PO SCH (21:43)
[2024-08-16 08:19] LABS: HEMATOCRIT 33.1 % (32.4-45.2); HEMOGLOBIN 10.5 GM/dL (10.7-15.3); MCH 30.1 pg (25.7-33.7); MCHC 31.7 g/dl (32.0-36.0); MEAN CELL VOLUME 94.9 fl (80-96); MEAN PLT VOLUME 8.5 fl (7.5-11.1); PLATELET COUNT 211 10^3/uL (134-434); RBC 3.49 M/mm3 (3.60-5.2); RDW 15.4 % (11.6-15.6); WHITE BLOOD COUNT 8.4 K/mm3 (4.0-10.0)
[2024-08-16 08:55] LABS: CHLORIDE 103 mmol/L (98-107); POTASSIUM 4.8 mmol/L (3.5-5.1); SODIUM 141 mmol/L (136-145)
[2024-08-16 08:58] LABS: ALBUMIN 3.2 g/dl (3.4-5.0); ANION GAP 13 mmol/L (4-13); BLOOD UREA NITROGEN 76.2 mg/dL (7-18); CALCIUM 8.8 mg/dL (8.5-10.1); CO2 25 mmol/L (21-32); GLUCOSE,RANDOM 103 mg/dL (74-106)
[2024-08-16 09:00] LABS: SGPT/ALT 22 U/L (13-61)
[2024-08-16 09:01] LABS: CREATININE 10.8 mg/dL (0.55-1.3); SGOT/AST 8 U/L (15-37)
[2024-08-16 09:02] LABS: BILIRUBIN,TOTAL 0.4 mg/dL (0.2-1); TOT PROT 7.2 g/dl (6.4-8.2)
[2024-08-16 09:04] LABS: ALK PHOS 73 U/L (45-117)
[2024-08-16] MEDS ORDERED: SODIUM CHLORIDE 250 ML IV PRN (13:25)
[2024-08-16] MEDS: levETIRAcetam 250 MG TABLET PO SCH (14:51)
[2024-08-17 08:52] LABS: HEMATOCRIT 31.6 % (32.4-45.2); HEMOGLOBIN 10.1 GM/dL (10.7-15.3); MEAN CELL VOLUME 93.6 fl (80-96); MEAN PLT VOLUME 8.6 fl (7.5-11.1); PLATELET COUNT 199 10^3/uL (134-434); RBC 3.38 M/mm3 (3.60-5.2); WHITE BLOOD COUNT 8.3 K/mm3 (4.0-10.0)
[2024-08-17] MEDS: EPOETIN ALFA-EPBX 4,000 UNIT/ML VIAL SQ ONE (08:55)
[2024-08-17] MEDS: HEPARIN NA (PORCINE) 5,000 UNITS/ML 1ML VIAL IVPUSH ONE (08:55)
[2024-08-17 09:33] LABS: CHLORIDE 100 mmol/L (98-107); POTASSIUM 4.6 mmol/L (3.5-5.1); SODIUM 138 mmol/L (136-145)
[2024-08-17 09:34] LABS: ANION GAP 14 mmol/L (4-13); CALCIUM 8.4 mg/dL (8.5-10.1); CO2 24 mmol/L (21-32)
[2024-08-17 09:35] LABS: BLOOD UREA NITROGEN 86.7 mg/dL (7-18); GLUCOSE,RANDOM 132 mg/dL (74-106)
[2024-08-17 09:52] LABS: CREATININE 12.1 mg/dL (0.55-1.3)
[2024-08-17 18:32] VITALS: BP 125/75; PULSE 88; RESP 18; TEMP 98.4
== END 2024-08-17 18:11 | DRG 100 ==
LOC: JER 17:48 → JERBED 20:06 → J4S 23:57 → OBSVTOIN 08-12 00:03
PROVIDERS: ADMIT Internal Medicine; ATTEND Internal Medicine
PROC: 5A1D70Z Performance of Urinary Filtration, Intermittent, Less than 6 Hours Per Day (ICD-10-PCS; principal; 2024-08-17)
DX: G40.89 Other seizures (principal); N18.6 End stage renal disease; I12.0 Hypertensive chronic kidney disease with stage 5 chronic kidney disease or end stage renal disease; N39.0 Urinary tract infection, site not specified; E11.9 Type 2 diabetes mellitus without complications; F01.50 Vascular dementia, unspecified severity, without behavioral disturbance, psychotic disturbance, mood disturbance, and anxiety; I16.0 Hypertensive urgency; K21.9 Gastro-esophageal reflux disease without esophagitis; B96.1 Klebsiella pneumoniae [K. pneumoniae] as the cause of diseases classified elsewhere; B96.4 Proteus (mirabilis) (morganii) as the cause of diseases classified elsewhere; Z99.2 Dependence on renal dialysis
CPT/HCPCS: 36415; 70450-TC; 71045-TC-FY; 80048; 80053; 80061; 80177; 81003; 82550; 82553; 82803; 82962; 83605; 83735; 84100; 85025; 85027; 86705; 86803; 87086; 87186; 87340; 87517; 93005; 93010; 99285-25; G0378; J1644; Q5106

== ENCOUNTER 2024-10-19 02:46 | Observation (INO) | payer OTHER ==
[2024-10-19 04:06] LABS: BASO % 0.8 % (0-2.0); EOS % 4.3 % (0-4.5); HEMATOCRIT 28.8 % (32.4-45.2); HEMOGLOBIN 9.2 GM/dL (10.7-15.3); MCH 29.1 pg (25.7-33.7); MEAN PLT VOLUME 9.3 fl (7.5-11.1); MONO % 12.5 % (3.8-10.2); NEUT % 47.4 % (42.8-82.8); PLATELET COUNT 176 10^3/uL (134-434); RBC 3.17 M/mm3 (3.60-5.2); RDW 16.4 % (11.6-15.6); WHITE BLOOD COUNT 5.9 K/mm3 (4.0-10.0)
[2024-10-19 04:22] LABS: CHLORIDE 101 mmol/L (98-107); SODIUM 132 mmol/L (136-145)
[2024-10-19 04:24] LABS: CALCIUM 8.6 mg/dL (8.5-10.1); CO2 21 mmol/L (21-32); GLUCOSE,RANDOM 146 mg/dL (74-106)
[2024-10-19 04:25] LABS: ALBUMIN 2.9 g/dl (3.4-5.0); BLOOD UREA NITROGEN 97.7 mg/dL (7-18); MAGNESIUM 2.4 mg/dL (1.8-2.4)
[2024-10-19 04:27] LABS: SGPT/ALT 20 U/L (13-61)
[2024-10-19 04:28] LABS: SGOT/AST 14 U/L (15-37)
[2024-10-19 04:29] LABS: BILIRUBIN,TOTAL 0.3 mg/dL (0.2-1); TOT PROT 6.8 g/dl (6.4-8.2)
[2024-10-19 04:30] LABS: ALK PHOS 122 U/L (45-117)
[2024-10-19 05:44] LABS: ANION GAP 10 mmol/L (4-13); CREATININE 12.2 mg/dL (0.55-1.3); POTASSIUM 7.1 mmol/L (3.5-5.1)
[2024-10-19] MEDS ORDERED: CALCIUM GLUC IN NACL, ISO-OSM 1 GM/50 ML BAG IVPB ONE (05:53)
[2024-10-19] MEDS ORDERED: DEXTROSE 50%-WATER 25 GM/50 ML DISP.SYRIN ONE (05:53)
[2024-10-19] MEDS ORDERED: SODIUM BICARBONATE 8.4% 50 MEQ/50 ML DISP.SYRIN ONE (05:53)
[2024-10-19] MEDS ORDERED: INSULIN REGULAR HUMAN 100 UNITS/ML *VIAL ONE ×2 (05:54→06:14)
[2024-10-19] MEDS: INSULIN REGULAR HUMAN 100 UNITS/ML *VIAL IVPUSH ONE (06:15)
[2024-10-19] MEDS: CALCIUM GLUCONATE 10% - 1,000 MG/10 ML VIAL IVPUSH ONE (06:15)
[2024-10-19] MEDS: SODIUM BICARBONATE 8.4% 50 MEQ/50 ML DISP.SYRIN IVPUSH ONE (06:15)
[2024-10-19] MEDS: DEXTROSE 50%-WATER 25 GM/50 ML DISP.SYRIN IVPUSH ONE (06:15)
[2024-10-19 07:50] LABS: VENOUS BASE EXCESS -7.1 mmol/L (-2-2); VENOUS O2 SATURATION 64.3 % (70-80); VENOUS PCO2 46.7 mmHg (38-52); VENOUS PH 7.248 (7.310-7.410)
[2024-10-19] MEDS ORDERED: SODIUM CHLORIDE 250 ML IV PRN (08:30)
[2024-10-19] MEDS: EPOETIN ALFA-EPBX 10,000 UNIT/ML VIAL IVPUSH ONE (09:29)
[2024-10-19] MEDS ORDERED: SODIUM ZIRCONIUM CYCLOSILICATE (LOKELMA) 10 GM PACKET PO SCH (11:30)
[2024-10-19] MEDS: SERTRALINE HCL 50 MG TABLET (FP) PO SCH (12:00)
[2024-10-19] MEDS: CARVEDILOL 25 MG TABLET (FP) PO SCH (12:00)
[2024-10-19] MEDS: INSULIN ASPART SLIDING SCALE (NOVOLOG) 1 VIAL SQ SCH (12:00)
[2024-10-19] MEDS: levETIRAcetam 500 MG TABLET (FP) PO SCH (12:00)
[2024-10-19] MEDS: SODIUM ZIRCONIUM CYCLOSILICATE (LOKELMA) 5 GM PACKET PO SCH (12:00)
[2024-10-19] MEDS: CALCIUM ACETATE 667 MG CAPSULE (FP) PO SCH (12:00)
[2024-10-19] MEDS: HEPARIN NA (PORCINE) 5,000 UNITS/ML 1ML VIAL SQ SCH (13:00)
[2024-10-19 13:21] LABS: POTASSIUM 3.1 mmol/L (3.5-5.1)
[2024-10-19 13:22] LABS: CALCIUM 8.5 mg/dL (8.5-10.1)
[2024-10-19 13:29] LABS: BLOOD UREA NITROGEN 19.3 mg/dL (7-18)
[2024-10-19] MEDS: hydrALAZINE HCL 50 MG TABLET (FP) PO SCH (17:50)
[2024-10-19] MEDS: ISOSORBIDE MONONITRATE 60 MG TAB.SR.24H (FP) PO SCH (17:50)
[2024-10-19] MEDS: cloNIDine-TTS 0.2 MG/24 HOURS PATCH.TDWK TD SCH (19:55)
[2024-10-19] MEDS: FAMOTIDINE 20 MG TABLET PO SCH (22:11)
[2024-10-19] MEDS: ATORVASTATIN CA 80 MG TABLET (FP) PO SCH (22:11)
[2024-10-20 08:45] LABS: POTASSIUM 4.7 mmol/L (3.5-5.1)
[2024-10-20 08:46] LABS: CALCIUM 8.6 mg/dL (8.5-10.1)
[2024-10-20 08:47] LABS: BLOOD UREA NITROGEN 39.9 mg/dL (7-18)
[2024-10-20 08:48] LABS: MCH 29.7 pg (25.7-33.7); MCHC 32.2 g/dl (32.0-36.0); MEAN CELL VOLUME 92.1 fl (80-96); MEAN PLT VOLUME 9.6 fl (7.5-11.1); PLATELET COUNT 162 10^3/uL (134-434); RBC 3.05 M/mm3 (3.60-5.2); RDW 16.2 % (11.6-15.6); WHITE BLOOD COUNT 4.9 K/mm3 (4.0-10.0)
[2024-10-20 08:50] LABS: CREATININE 6.8 mg/dL (0.55-1.3)
[2024-10-20] MEDS: VITAMIN B COMP W-C 1 EA TABLET (NEPHRO-VITE) PO SCH (09:44)
[2024-10-20] MEDS ORDERED: SODIUM CHLORIDE 250 ML IV PRN (12:30)
[2024-10-20] MEDS: HEPARIN NA (PORCINE) 5,000 UNITS/ML 1ML VIAL IVPUSH ONE (12:56)
[2024-10-20] MEDS: EPOETIN ALFA-EPBX 10,000 UNIT/ML VIAL SQ ONE (14:25)
[2024-10-20 14:33] VITALS: BMI 19.1
[2024-10-20 15:39] VITALS: BP 115/48; PULSE 72; RESP 17; TEMP 98.4
[2024-10-22] MEDS ORDERED: SODIUM ZIRCONIUM CYCLOSILICATE (LOKELMA) 10 GM PACKET PO SCH (10:00)
== END 2024-10-20 17:15 ==
LOC: JER 02:46 → JERBED 05:54 → J4W 12:44
PROVIDERS: ADMIT Internal Medicine; ATTEND Internal Medicine
PROC: 3E033GC Introduction of Other Therapeutic Substance into Peripheral Vein, Percutaneous Approach (ICD-10-PCS; principal; 2024-10-19)
PROC: 3E023GC Introduction of Other Therapeutic Substance into Muscle, Percutaneous Approach (ICD-10-PCS; 2024-10-19)
PROC: 3E033VG Introduction of Insulin into Peripheral Vein, Percutaneous Approach (ICD-10-PCS; 2024-10-19)
DX: E11.22 Type 2 diabetes mellitus with diabetic chronic kidney disease (principal); I12.0 Hypertensive chronic kidney disease with stage 5 chronic kidney disease or end stage renal disease; G40.909 Epilepsy, unspecified, not intractable, without status epilepticus; Z99.2 Dependence on renal dialysis; F03.90 Unspecified dementia, unspecified severity, without behavioral disturbance, psychotic disturbance, mood disturbance, and anxiety; D64.9 Anemia, unspecified; E87.5 Hyperkalemia
CPT/HCPCS: 36415; 80048; 80053; 82803; 82962; 83735; 84100; 85025; 85027; 86704; 86705; 86803; 87340; 87517; 93005; 93010; 96372; 96374; 96375; 99285-25; G0378; J1644; Q5106

== ENCOUNTER 2025-01-10 19:16 | Inpatient (IN) | payer OTHER ==
[2025-01-10 20:37] LABS: BASO % 0.4 % (0-2.0); HEMATOCRIT 41.9 % (32.4-45.2); HEMOGLOBIN 13.9 GM/dL (10.7-15.3); MCH 31.1 pg (25.7-33.7); MCHC 33.2 g/dl (32.0-36.0); MEAN CELL VOLUME 93.6 fl (80-96); MEAN PLT VOLUME 8.5 fl (7.5-11.1); MONO % 2.3 % (3.8-10.2); NEUT % 88.3 % (42.8-82.8); PLATELET COUNT 289 10^3/uL (134-434); RBC 4.48 M/mm3 (3.60-5.2); RDW 16.9 % (11.6-15.6); WHITE BLOOD COUNT 7.7 K/mm3 (4.0-10.0)
[2025-01-10 20:45] LABS: INR 1.07 (0.83-1.09); PROTHROMBIN TIME (PATIENT) 11.8 SEC (9.7-13.0)
[2025-01-10 21:03] LABS: POTASSIUM 3.8 mmol/L (3.5-5.1)
[2025-01-10 21:08] LABS: ALBUMIN 4.4 g/dl (3.4-5.0); BLOOD UREA NITROGEN 34.2 mg/dL (7-18); CALCIUM 10.7 mg/dL (8.5-10.1)
[2025-01-10 21:12] LABS: CREATININE 6.7 mg/dL (0.55-1.3)
[2025-01-10 21:13] LABS: BILIRUBIN,TOTAL 0.7 mg/dL (0.2-1); TOT PROT 9.6 g/dl (6.4-8.2)
[2025-01-10] MEDS ORDERED: ACETAMINOPHEN INJECTION 100 ML ONE (22:12)
[2025-01-10] MEDS ORDERED: ONDANSETRON 4 MG/2 ML VIAL ONE (22:12)
[2025-01-10] MEDS: ONDANSETRON 4 MG/2 ML VIAL IVPB ONE (22:17)
[2025-01-10] MEDS: ACETAMINOPHEN 1000 MG/100 ML BAG IVPB ONE (22:17)
[2025-01-11] MEDS ORDERED: cloNIDine HCL 0.1 MG TABLET ONE (03:12)
[2025-01-11] MEDS: cloNIDine HCL 0.1 MG TABLET PO ONE (03:15)
[2025-01-11] MEDS ORDERED: hydrALAZINE HCL 20 MG/ML VIAL ONE (04:39)
[2025-01-11] MEDS: hydrALAZINE HCL 20 MG/ML VIAL IVPUSH PRN (04:45)
[2025-01-11] MEDS ORDERED: ACETAMINOPHEN 1000 MG/100 ML BAG IVPB PRN (05:49)
[2025-01-11] MEDS ORDERED: ONDANSETRON 4 MG/2 ML VIAL IVPUSH PRN (05:51)
[2025-01-11] MEDS ORDERED: hydrALAZINE HCL 50 MG TABLET (FP) ONE (06:06)
[2025-01-11] MEDS: PANTOPRAZOLE SODIUM 40 MG VIAL IVPUSH ONE (06:16)
[2025-01-11] MEDS: CALCIUM ACETATE 667 MG CAPSULE (FP) PO SCH ×3 (06:18→17:15)
[2025-01-11] MEDS: hydrALAZINE HCL 50 MG TABLET (FP) PO SCH ×2 (06:18→17:16)
[2025-01-11] MEDS: SODIUM CHLORIDE 0.9% 500 ML INFUS.BAG IV ONE (07:03)
[2025-01-11] MEDS: INSULIN ASPART SLIDING SCALE (NOVOLOG) 1 VIAL SQ SCH (07:20)
[2025-01-11 07:36] LABS: BASO % 0.4 % (0-2.0); HEMOGLOBIN 13.9 GM/dL (10.7-15.3); LYMPH % 16.5 % (8-40); MCH 31.2 pg (25.7-33.7); MCHC 33.2 g/dl (32.0-36.0); MONO % 9.3 % (3.8-10.2); NEUT % 73.8 % (42.8-82.8); PLATELET COUNT 282 10^3/uL (134-434); RBC 4.47 M/mm3 (3.60-5.2); RDW 16.6 % (11.6-15.6); WHITE BLOOD COUNT 7.5 K/mm3 (4.0-10.0)
[2025-01-11 08:00] LABS: CHLORIDE 93 mmol/L (98-107); POTASSIUM 3.8 mmol/L (3.5-5.1); SODIUM 136 mmol/L (136-145)
[2025-01-11 08:12] LABS: ALBUMIN 4.2 g/dl (3.4-5.0); ANION GAP 15 mmol/L (4-13); BLOOD UREA NITROGEN 43.7 mg/dL (7-18); CALCIUM 10.5 mg/dL (8.5-10.1); CO2 28 mmol/L (21-32); GLUCOSE,RANDOM 178 mg/dL (74-106); MAGNESIUM 2.4 mg/dL (1.8-2.4)
[2025-01-11 08:15] LABS: PHOSPHOROUS 5.3 mg/dL (2.5-4.9); SGOT/AST 13 U/L (15-37)
[2025-01-11 08:16] LABS: BILIRUBIN,TOTAL 0.6 mg/dL (0.2-1); TOT PROT 9.2 g/dl (6.4-8.2)
[2025-01-11 08:17] LABS: ALK PHOS 154 U/L (45-117); SGPT/ALT 18 U/L (13-61)
[2025-01-11 08:25] LABS: CREATININE 7.7 mg/dL (0.55-1.3)
[2025-01-11] MEDS ORDERED: hydrALAZINE HCL 50 MG TABLET (FP) PO SCH (09:00)
[2025-01-11] MEDS: SODIUM CHLORIDE 1,000 ML IV STA (09:02)
[2025-01-11] MEDS ORDERED: CARVEDILOL 25 MG TABLET (FP) PO SCH ×2 (10:00→22:00)
[2025-01-11] MEDS ORDERED: cloNIDine-TTS 0.2 MG/24 HOURS PATCH.TDWK TD SCH (10:00)
[2025-01-11] MEDS ORDERED: ISOSORBIDE MONONITRATE 60 MG TAB.SR.24H (FP) PO SCH (10:00)
[2025-01-11] MEDS: SODIUM ZIRCONIUM CYCLOSILICATE (LOKELMA) 10 GM PACKET PO SCH (10:10)
[2025-01-11] MEDS: levETIRAcetam 500 MG TABLET (FP) PO SCH (10:10)
[2025-01-11] MEDS: VITAMIN B COMP W-C 1 EA TABLET (NEPHRO-VITE) PO SCH (10:10)
[2025-01-11] MEDS: FAMOTIDINE 20 MG TABLET PO SCH (10:10)
[2025-01-11] MEDS: SERTRALINE HCL 50 MG TABLET (FP) PO SCH (10:14)
[2025-01-11] MEDS ORDERED: PANTOPRAZOLE SODIUM 40 MG VIAL ONE (11:25)
[2025-01-11] MEDS: PANTOPRAZOLE SODIUM 40 MG VIAL IVPUSH SCH (11:26)
[2025-01-11] MEDS ORDERED: SODIUM CHLORIDE 250 ML IV PRN (13:17)
[2025-01-11] MEDS ORDERED: levETIRAcetam 500 MG TABLET (FP) PO ONE (15:34)
[2025-01-11] MEDS: MIDODRINE HCL 2.5 MG TABLET PO ONE (17:15)
[2025-01-11 17:37] VITALS: BMI 21.1
[2025-01-11] MEDS: ATORVASTATIN CA 80 MG TABLET (FP) PO SCH (21:44)
[2025-01-12 07:55] LABS: BASO % 0.7 % (0-2.0); EOS % 2.3 % (0-4.5); HEMATOCRIT 34.4 % (32.4-45.2); HEMOGLOBIN 11.3 GM/dL (10.7-15.3); LYMPH % 31.1 % (8-40); MCH 31.3 pg (25.7-33.7); MEAN CELL VOLUME 94.8 fl (80-96); MEAN PLT VOLUME 8.6 fl (7.5-11.1); MONO % 8.2 % (3.8-10.2); NEUT % 57.7 % (42.8-82.8); PLATELET COUNT 213 10^3/uL (134-434); RBC 3.63 M/mm3 (3.60-5.2); RDW 17.1 % (11.6-15.6); WHITE BLOOD COUNT 7.2 K/mm3 (4.0-10.0)
[2025-01-12 09:58] VITALS: RESP 18
[2025-01-12] MEDS ORDERED: cloNIDine-TTS 0.2 MG/24 HOURS PATCH.TDWK TD SCH (10:00)
[2025-01-12] MEDS ORDERED: ISOSORBIDE MONONITRATE 60 MG TAB.SR.24H (FP) PO SCH (10:00)
[2025-01-12 17:42] VITALS: PULSE 68
[2025-01-12 18:17] VITALS: BP 118/56; TEMP 98.7
[2025-01-12] MEDS: hydrALAZINE HCL 50 MG TABLET (FP) PO SCH (18:17)
[2025-01-12] MEDS ORDERED: CARVEDILOL 25 MG TABLET (FP) PO SCH (22:00)
[2025-01-13] MEDS ORDERED: ISOSORBIDE MONONITRATE 60 MG TAB.SR.24H (FP) PO SCH (10:00)
[2025-01-14] MEDS ORDERED: cloNIDine-TTS 0.2 MG/24 HOURS PATCH.TDWK TD SCH (10:00)
== END 2025-01-12 19:31 | DRG 280 ==
LOC: JER 19:16 → JERBED 23:38 → OBSVTOIN 01-11 04:45 → J4W 01-11 16:11
PROVIDERS: ADMIT Internal Medicine
PROC: 5A1D70Z Performance of Urinary Filtration, Intermittent, Less than 6 Hours Per Day (ICD-10-PCS; principal; 2025-01-12)
DX: I16.0 Hypertensive urgency (principal); N18.6 End stage renal disease; I21.A1 Myocardial infarction type 2; K92.0 Hematemesis; R47.01 Aphasia; E11.9 Type 2 diabetes mellitus without complications; F01.50 Vascular dementia, unspecified severity, without behavioral disturbance, psychotic disturbance, mood disturbance, and anxiety; K21.9 Gastro-esophageal reflux disease without esophagitis; E78.5 Hyperlipidemia, unspecified; I12.0 Hypertensive chronic kidney disease with stage 5 chronic kidney disease or end stage renal disease
CPT/HCPCS: 0241U-QW; 36415; 70450-TC; 71045-TC-FY; 74177-TC; 80053; 82272; 82962; 83735; 84100; 84484; 85025; 85610; 85730; 86803; 86850; 86900; 86901; 87340; 93005; 93010; 93306-TC; 97116-GP; 97161-GP; 99285-25; G0378; J0131

== ENCOUNTER 2025-05-25 18:43 | Inpatient (IN) | payer OTHER ==
[2025-05-25 19:50] LABS: ABSOLUTE IMMATURE GRANULOCYTES 0.04 x10^3/uL (0.0-0.031); BASOPHILS # 0.03 x10^3/uL (0.01-0.08); EOSINOPHIL % 0.4 % (0.7-5.8); EOSINOPHILS # 0.03 x10^3/uL (0.04-0.36); MCHC 32.5 g/dl (32.2-35.5); MEAN CELL VOLUME 97.6 fl (79.4-94.8); MEAN PLT VOLUME 10.1 fl (9.4-12.3); MONOCYTE # 0.27 x10^3/uL (0.24-0.86); MONOCYTE % 3.5 % (4.7-12.5); RDW 13.7 % (12.3-16.6)
[2025-05-25] MEDS ORDERED: ONDANSETRON 4 MG/2 ML VIAL ONE (19:58)
[2025-05-25] MEDS ORDERED: PANTOPRAZOLE SODIUM 40 MG VIAL ONE (19:59)
[2025-05-25] MEDS: ONDANSETRON 4 MG/2 ML VIAL IVPB ONE (20:07)
[2025-05-25] MEDS: PANTOPRAZOLE SODIUM 40 MG VIAL IVPUSH ONE (20:07)
[2025-05-25 20:10] LABS: CO2 26.0 mmol/L (21-32); GLUCOSE,RANDOM 172.0 mg/dL (74-106)
[2025-05-25 20:13] LABS: CREATININE 6.2 mg/dL (0.55-1.3); SGOT/AST 21.0 U/L (15-37); SGPT/ALT 25.0 U/L (13-61)
[2025-05-25 20:14] LABS: TOT PROT 7.6 g/dl (6.4-8.2)
[2025-05-25 20:16] LABS: ALK PHOS 137.0 U/L (45-117)
[2025-05-25 20:26] LABS: INR 0.94 (0.83-1.09); PROTHROMBIN TIME (PATIENT) 10.3 SEC (9.7-13.0)
[2025-05-25 20:29] LABS: ACTIVATED PTT 28.6 SECONDS (25.2-36.5)
[2025-05-25 21:14] LABS: HIV INTERPRETATION NEGATIVE (NEGATIVE)
[2025-05-25 21:15] LABS: HCV DIAGNOSTIC IN-HOUSE W/RFLX NON-REACTIVE (NONREACTIVE)
[2025-05-25] MEDS: PANTOPRAZOLE SODIUM 80 MG in SODIUM CHLORIDE 100 ML IVPB SCH (22:54)
[2025-05-26 00:39] VITALS: BMI 21.1
[2025-05-26 07:57] LABS: ABSOLUTE IMMATURE GRANULOCYTES 0.05 x10^3/uL (0.0-0.031); BASOPHILS # 0.02 x10^3/uL (0.01-0.08); EOSINOPHIL % 0.0 % (0.7-5.8); EOSINOPHILS # 0.00 x10^3/uL (0.04-0.36); MCHC 32.0 g/dl (32.2-35.5); MEAN CELL VOLUME 97.4 fl (79.4-94.8); MEAN PLT VOLUME 10.2 fl (9.4-12.3); MONOCYTE # 0.61 x10^3/uL (0.24-0.86); MONOCYTE % 6.1 % (4.7-12.5); RDW 13.6 % (12.3-16.6)
[2025-05-26 07:58] LABS: CO2 26 mmol/L (21-32)
[2025-05-26 07:59] LABS: GLUCOSE,RANDOM 152 mg/dL (74-106)
[2025-05-26 08:02] LABS: CREATININE 7.0 mg/dL (0.55-1.3)
[2025-05-26] MEDS ORDERED: INSULIN REGULAR HUMAN 100 UNITS/ML *VIAL IVPUSH ONE (10:26)
[2025-05-26] MEDS ORDERED: SODIUM CHLORIDE 250 ML IV PRN (11:00)
[2025-05-26] MEDS: DEXTROSE 50%-WATER 25 GM/50 ML DISP.SYRIN IVPUSH ONE (11:29)
[2025-05-26] MEDS: CALCIUM GLUCONATE IN NACL 1 GM/50 ML BAG IVPB ONE (11:29)
[2025-05-26] MEDS: HEPARIN NA (PORCINE) 5,000 UNITS/ML 1ML VIAL IVPUSH ONE (12:00)
[2025-05-26] MEDS: CALCIUM ACETATE 667 MG CAPSULE (FP) PO SCH (12:19)
[2025-05-26] MEDS ORDERED: CALCIUM ACETATE 667 MG CAPSULE (FP) PO SCH (14:00)
[2025-05-26] MEDS: hydrALAZINE HCL 50 MG TABLET (FP) PO SCH (15:35)
[2025-05-26] MEDS: ATORVASTATIN CA 80 MG TABLET (FP) PO SCH (21:03)
[2025-05-26] MEDS: levETIRAcetam 500 MG TABLET (FP) PO SCH (21:03)
[2025-05-27 06:13] VITALS: PULSE 83; RESP 17
[2025-05-27 07:32] LABS: ABSOLUTE IMMATURE GRANULOCYTES 0.01 x10^3/uL (0.0-0.031); BASOPHILS # 0.03 x10^3/uL (0.01-0.08); EOSINOPHIL % 4.7 % (0.7-5.8); EOSINOPHILS # 0.28 x10^3/uL (0.04-0.36); MCHC 31.4 g/dl (32.2-35.5); MEAN CELL VOLUME 99.6 fl (79.4-94.8); MEAN PLT VOLUME 9.7 fl (9.4-12.3); MONOCYTE # 0.52 x10^3/uL (0.24-0.86); MONOCYTE % 8.7 % (4.7-12.5); RDW 13.7 % (12.3-16.6)
[2025-05-27 07:37] LABS: MCHC 31.3 g/dl (32.2-35.5); MEAN CELL VOLUME 99.6 fl (79.4-94.8); MEAN PLT VOLUME 9.7 fl (9.4-12.3); RDW 13.8 % (12.3-16.6)
[2025-05-27 09:24] VITALS: BP 127/50; TEMP 98.1
[2025-05-27 09:44] LABS: GLUCOSE,RANDOM 98.0 mg/dL (74-106)
[2025-05-27 09:45] LABS: CREATININE 4.6 mg/dL (0.55-1.3)
[2025-05-27 09:47] LABS: SGOT/AST 16.0 U/L (15-37)
[2025-05-27] MEDS: PANTOPRAZOLE 40 MG TABLET PO SCH (10:00)
[2025-05-27] MEDS: SODIUM ZIRCONIUM CYCLOSILICATE (LOKELMA) 10 GM PACKET PO SCH (10:00)
[2025-05-27] MEDS ORDERED: EPOETIN ALFA-EPBX 10,000 UNIT/ML VIAL SQ ONE (10:00)
[2025-05-27] MEDS: SERTRALINE HCL 50 MG TABLET (FP) PO SCH (10:00)
[2025-05-27] MEDS: VITAMIN B COMP W-C 1 EA TABLET (NEPHRO-VITE) PO SCH (10:00)
[2025-05-27] MEDS ORDERED: SODIUM ZIRCONIUM CYCLOSILICATE 10 GM PO SCH (10:00)
[2025-05-27 10:24] LABS: CO2 32.0 mmol/L (21-32)
[2025-05-27 10:28] LABS: TOT PROT 6.2 g/dl (6.4-8.2)
[2025-05-27 10:44] LABS: ALK PHOS 105.0 U/L (45-117); SGPT/ALT 17.0 U/L (13-61)
== END 2025-05-27 17:28 | DRG 304 ==
LOC: JER 18:43 → JERBED 20:51 → J4W 23:50
PROVIDERS: ADMIT Internal Medicine; ATTEND Internal Medicine
PROC: 5A1D70Z Performance of Urinary Filtration, Intermittent, Less than 6 Hours Per Day (ICD-10-PCS; principal; 2025-05-26)
DX: I16.1 Hypertensive emergency (principal); N18.6 End stage renal disease; R04.2 Hemoptysis; I12.0 Hypertensive chronic kidney disease with stage 5 chronic kidney disease or end stage renal disease; F01.50 Vascular dementia, unspecified severity, without behavioral disturbance, psychotic disturbance, mood disturbance, and anxiety; D64.9 Anemia, unspecified; E11.9 Type 2 diabetes mellitus without complications; Z99.2 Dependence on renal dialysis
CPT/HCPCS: 36415; 80048; 80053; 82550; 82962; 83605; 83690; 84484; 85025; 85027; 85610; 85730; 86803; 86850; 86900; 86901; 87340; 87389; 93005; 93010; 99285-25